=== PATIENT | female | born 1945 | race Caucasian/White ===

== ENCOUNTER → 2019-08-27 09:41 | Outpatient (BNVA) | payer MEDICARE, OTHER, SELFPAY | PROVIDERS: Family Provider Family Medicine; PCP Internal Medicine; Referring Provider Internal Medicine; Visit Provider Orthopaedic Surgery | DX: M77.8 Other enthesopathies, not elsewhere classified (principal); M25.562 Pain in left knee; M25.561 Pain in right knee | CPT/HCPCS: 73560; 73565 ==

== ENCOUNTER → 2019-09-02 12:06 | Outpatient (BNVA) | payer MEDICARE, OTHER, SELFPAY | PROVIDERS: Family Provider Family Medicine; PCP Internal Medicine; Visit Provider Urology | DX: N39.0 Urinary tract infection, site not specified (principal); N39.46 Mixed incontinence | CPT/HCPCS: 81001; 87086 ==

== ENCOUNTER → 2020-03-04 10:00 | Outpatient (BNVA) | payer MEDICARE, OTHER, MEDICAID, SELFPAY | PROVIDERS: Family Provider Family Medicine; PCP Internal Medicine; Visit Provider Nurse Practitioner Family | DX: N39.0 Urinary tract infection, site not specified (principal); N39.46 Mixed incontinence | CPT/HCPCS: 81001 ==

== ENCOUNTER 2020-04-15 10:36 | Inpatient (IN) | payer MEDICARE, OTHER, MEDICAID, SELFPAY ==
[2020-04-15] VITALS (12 sets, daily range): BP systolic 116–155; BP diastolic 59–78; PULSE 66–88; RESP 16–29; TEMP 36.8–37.4; O2SAT 89–97; BMI 36.5
--- NOTE | 2020-04-15 10:46 | XRR_ITS ---
PROCEDURE INFORMATION: Exam: XR Chest, 1 View Exam date and time: 04/15/2020 10:53 AM Age: 74 years old Clinical indication: Dyspnea TECHNIQUE: Imaging protocol: XR of the chest Views: 1 view. COMPARISON: CR Chest 1 [place] [id number] 03/01/2019 2:46 PM FINDINGS: Lungs: Subtle patchy airspace disease in the perihilar regions and lung bases. Left greater than right. Mildly progressive. Pleural space: Unremarkable. No pleural effusion. No pneumothorax. Heart/Mediastinum: Unremarkable. No cardiomegaly. Bones/joints: Unremarkable. XR/XR chest 1V portable [id number] IMPRESSION: Subtle patchy airspace disease in the perihilar regions and lung bases. Left greater than right. Mildly progressive.
--- NOTE | 2020-04-15 10:46 | ECG_ITS ---
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 Measurements Intervals Pool Rate: 76 P: 72 WV: 158 QRS: -28 QRSD: 93 T: 0 QT: 419 QTc: 472 Interpretive Statements SINUS RHYTHM BORDERLINE LEFT AXIS DEVIATION [QRS AXIS < -20] MODERATE VOLTAGE CRITERIA FOR LVH, CONSIDER NORMAL VARIANT [MEETS CRITERIA IN ONE OF: R(aVL), S(V1), R(V5), R(V5/V6)+S(V1)] NONSPECIFIC T-WAVE ABNORMALITY Compared to ECG 03/01/2019 15:12:48 T-wave abnormality now present Sinus arrhythmia no longer present Electronically Signed On 04-16-2020 20:25:42 CDT by Vlad Barcenas M.D. [id number]
[2020-04-15 10:57] LABS: ABG PCO2 33.8 mmHg (35-45); Arterial Blood Gas Hematocrit 37.8 % (37-47); Base Excess ABG -3.2 mmol/L (-2.0-2.0); Blood Gas Allen Test Pos; Blood Gas Operator Identificat CAK; Blood Gas Sample Site Radial, left; Blood Gas Sample Type Arterial; HCO3 ABG 20.9 mmol/L (22-26); Oxygen Device NC; PO2 ABG 57.6 mmHg (80.0-100.0)
[2020-04-15] MEDS: dexamethasone 4 mg/mL INJ 6 MG IVP (11:00)
--- NOTE | 2020-04-15 11:33 | W.ED.SOB ---
HPI - SOB/Dyspnea General: Chief Complaint: Shortness of Breath/Dyspnea Stated Complaint: COVID, RESP DISTRESS Time Seen by Provider: 04/15/20 10:44 History of Present Illness: HPI Narrative: 74-year-old [facility] she was diagnosed with Covid for the [facility] staff. According to her chart she was tested positive on 04/08 but I do not see what type of test she had. She is extremely short of breath she has had nausea vomiting and diarrhea. She denies any chest pain. She is requiring high flow oxygen in the exam room to maintain her sats near 90. She has a history of congestive heart failure and diabetes mellitus. We did verify through the jail she had a PCR test to establish her Covid diagnosis. MD elicited complaint: shortness of breath and cough Pertinent past history: congestive heart failure Onset (ago): day(s) Context: recent illness (Diagnosis COVID-19 through the jail.) Timing: constant Severity: severe Exacerbating factors: exertion and coughing Relieving factors: oxygen and rest Known history of: congestive heart failure Associated symptoms: Reports chest congestion, cough, fever(s), lightheadedness, myalgias and nausea; Deny abdominal pain, chest pain, diaphoresis, dizziness, extremity pain, hemoptysis, orthopnea, palpitations, paresthesias, polydipsia, polyuria, rash, sense of impending doom, syncope or vomiting Treatment prior to arrival: oxygen Review of Systems Const: Reports: fever(s); Denies: diaphoresis ENMT: Reports: nasal discharge and nasal congestion; Denies: throat pain or ear or mastoid pain Card: Reports: lightheadedness; Denies: chest pain, palpitations, syncope or orthopnea Resp: Reports: dyspnea, productive cough (Clear nonpurulent mucus) and chest congestion; Denies: hemoptysis GI: Reports: nausea; Denies: abdominal pain or vomiting : Denies: flank pain, difficulty voiding, dysuria, urinary frequency or urinary urgency Musc: Denies: extremity pain Skin/Breast: Denies: rash or pruritus Neuro: Denies: dizziness Endo: Denies: polyuria or polydipsia PFSH ED PFSH: Medical History CHF (congestive heart failure) Depression Diabetes mellitus with insulin therapy Diabetic neuropathy DJD (degenerative joint disease) GERD (gastroesophageal reflux disease) Hyperlipidemia Hypertension, accelerated Hypertensive CHF Obesity Obstructive sleep apnea Uses CPAP 12 cm water pressure Recurrent UTI Urinary incontinence, mixed Surgical History H/O knee surgery H/O: hysterectomy History of cholecystectomy Family History Father , at age 51 Chronic kidney disease (CKD) Diabetes Mother , at age 81 No problems noted. Other Cancer Kidney disease Stroke Social History Smoking and tobacco status: never smoked Alcohol intake: never Adopted: No Caregiver/support person: No Lives independently: No Housing: Penitentiary Marital status: / Current occupational status: disabled History of recent travel: No Current gender identity: Female Physical Exam Const: COMMON NORMALS: no acute distress GENERAL APPEARANCE: cooperative and comfortable ORIENTATION/CONSCIOUSNESS: Yes awake, Yes oriented to person, Yes oriented to place and Yes oriented to time HENMT: COMMON NORMALS: normocephalic, atraumatic and hearing grossly normal bilaterally HEAD & SCALP: normocephalic and atraumatic Neck/C-Spine: COMMON NORMALS: no JVD Resp: AUSCULTATION: rhonchi and wheezes Cardio: COMMON NORMALS: no JVD, regular rate, regular rhythm and No murmurs present (Cardio) RATE: regular rate RHYTHM: regular rhythm GI: COMMON NORMALS: Soft to palpation and No hepatosplenomegaly present AUSCULTATION: Yes normoactive bowel sounds PALPATION: Yes Soft to palpation, No Tenderness to palpation present (GI), No Guarding due to palpation present (GI) and Yes No hepatosplenomegaly present Extremity: COMMON NORMALS: normal to inspection, capillary refill normal, no clubbing, cyanosis or edema, no calf tenderness and no pedal edema Neuro: SENSORIUM/ORIENTATION: Yes oriented to person, Yes oriented to place and Yes oriented to time Skin: COMMON NORMALS: no rashes or lesions noted GENERAL SKIN EXAM: no rashes or lesions noted Course Vital Signs: Vital signs: Vital Signs Temperature 98.4 F 04/16/20 04:00 Pulse Rate 67 04/16/20 06:02 Respiratory Rate 24 H 10/14/20 19:05 Blood Pressure 155/77 04/15/20 19:05 Pulse Oximetry 95 04/16/20 06:02 MDM - SOB/Dyspnea MDM Narrative: Medical decision making narrative: Patient has Covid pneumonitis on chest x-ray. Given her physical exam findings and hypoxia and need for high flow oxygen will admit her to the VICU discussed with Dr. Mathur he will be attending he seen the patient in the emergency room orders have been written. Lab Data: Labs: Lab Results 04/15/20 04/15/20 04/15/20 Range/Units 10:46 11:20 12:55 WBC 9.0 (4.0-10.0) 10^3/ uL RBC 4.30 (4.1-5.3) 10^6/u L Hgb 11.4 L (11.5-15.3) g/dL Hct 36.3 L (37.0-47.0) % MCV 84.4 (81-99) fL MCH 26.5 L (28.0-34.0) pg MCHC 31.4 (30.0-36.0) g/dL RDW 14.5 (12.1-15.1) % Plt Count 217 (130-400) 10^3/c mm MPV 11.1 H (7.4-10.4) fL Neut % (Auto) 85.4 % Lymph % (Auto) 8.9 % Cocke % (Auto) 3.5 % Eos % (Auto) 0.0 % Baso % (Auto) 0.3 % Neut # (Auto) 7.70 (1.8-7.7) 10^3/u L Lymph # (Auto) 0.8 (0.8-4.8) 10^3/u L Cocke # (Auto) 0.3 (0.2-0.9) 10^3/u L Eos # (Auto) 0.0 (0.0-0.8) 10^3/u L Baso # (Auto) 0.0 (0.0-0.1) 10^3/u L Nucleated RBC % (a uto) 0 % Nucleated RBCs # 0.0 /100WBC Fibrinogen 654 H (174-498) mg/dL D-Dimer 1.20 H (0-0.59) ug/mIFE U Specimen Type Arterial Sample Site Radial, left ABG pH 7.40 (7.35-7.45) ABG pCO2 33.8 L (35-45) mmHg ABG pO2 57.6 L (80.0-100.0) mmH g ABG HCO3 20.9 L (22-26) mmol/L ABG Base Excess -3.2 L (-2.0-2.0) mmol/ L Vinay Test Pos Hematocrit 37.8 (37-47) % O2 Delivery Device Nc O2 Liters/Min 8.0 % Slicing Machine Operator ID Cak Sodium (136-145) mmol/L Potassium (3.5-5.1) mmol/L Chloride (98-107) mmol/L Carbon Dioxide (22-29) mmol/L Anion Gap (5-19) BUN (8-23) mg/dL Creatinine (0.5-0.9) mg/dL GFR Calculation Glucose (65-115) mg/dL Calculated Osmolal ity (285-295) mOsm/k g Lactic Acid (0.5-2.2) mmol/L Calcium (8.5-10.5) mg/dL Ferritin (15-150) ng/mL Total Bilirubin (0.15-1.2) mg/dL AST (0-32) U/L ALT (0-33) U/L Alkaline Phosphata se (35-105) IU/L Lactate Dehydrogen ase (135-214) U/L C-Reactive Protein (0.0-4.9) mg/L Total Protein (6.6-8.7) g/dL Albumin (3.5-5.2) g/dL Globulin (1.3-4.6) g/dL Procalcitonin (0-0.5) ng/mL TSH (0.27-4.20) uIU/ mL 04/15/20 04/15/20 04/15/20 Range/Units 12:55 12:55 12:55 WBC (4.0-10.0) 10^3/ uL RBC (4.1-5.3) 10^6/u L Hgb (11.5-15.3) g/dL Hct (37.0-47.0) % MCV (81-99) fL MCH (28.0-34.0) pg MCHC (30.0-36.0) g/dL RDW (12.1-15.1) % Plt Count (130-400) 10^3/c mm MPV (7.4-10.4) fL Neut % (Auto) % Lymph % (Auto) % Cocke % (Auto) % Eos % (Auto) % Baso % (Auto) % Neut # (Auto) (1.8-7.7) 10^3/u L Lymph # (Auto) (0.8-4.8) 10^3/u L Cocke # (Auto) (0.2-0.9) 10^3/u L Eos # (Auto) (0.0-0.8) 10^3/u L Baso # (Auto) (0.0-0.1) 10^3/u L Nucleated RBC % (a uto) % Nucleated RBCs # /100WBC Fibrinogen (174-498) mg/dL D-Dimer (0-0.59) ug/mIFE U Specimen Type Sample Site ABG pH (7.35-7.45) ABG pCO2 (35-45) mmHg ABG pO2 (80.0-100.0) mmH g ABG HCO3 (22-26) mmol/L ABG Base Excess (-2.0-2.0) mmol/ L Vinay Test Hematocrit (37-47) % O2 Delivery Device O2 Liters/Min % Slicing Machine Operator ID Sodium 140 (136-145) mmol/L Potassium 3.3 L (3.5-5.1) mmol/L Chloride 103 (98-107) mmol/L Carbon Dioxide 20 L (22-29) mmol/L Anion Gap 20.3 H (5-19) BUN 42 H (8-23) mg/dL Creatinine 2.1 H (0.5-0.9) mg/dL GFR Calculation Not Reportable Glucose 252 H (65-115) mg/dL Calculated Osmolal ity 309 H (285-295) mOsm/k g Lactic Acid 1.2 (0.5-2.2) mmol/L Calcium 8.3 L (8.5-10.5) mg/dL Ferritin 464 H (15-150) ng/mL Total Bilirubin 0.3 (0.15-1.2) mg/dL AST 31 (0-32) U/L ALT 23 (0-33) U/L Alkaline Phosphata se 80 (35-105) IU/L Lactate Dehydrogen ase 418 H (135-214) U/L C-Reactive Protein 137.5 H (0.0-4.9) mg/L Total Protein 6.8 (6.6-8.7) g/dL Albumin 3.6 (3.5-5.2) g/dL Globulin 3.2 (1.3-4.6) g/dL Procalcitonin 0.40 (0-0.5) ng/mL TSH 0.72 (0.27-4.20) uIU/ mL Discharge Plan Discharge Patient Disposition: Admitted As Inpatient Admit Provider: Oswaldo Ribera Clinical Impression: Pneumonia due to COVID-19 virus, Acute respiratory failure, CHF (congestive heart failure), Anemia, Hypertension, accelerated Condition: Stable Interventions: ED Discharge Assessment Last Done: 04/15/20 19:05 ED Charges Last Done: 04/15/20 19:05 Discharge Date/Time: 04/15/20 20:19 Coding Level of Care Code 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
[2020-04-15 11:57] LABS: Fibrinogen 654 mg/dL (174-498)
[2020-04-15 13:02] LABS: Basophils % 0.3 %; Hematocrit 36.3 % (37.0-47.0); Hemoglobin 11.4 g/dL (11.5-15.3); Lymphocytes # 0.8 10^3/uL (0.8-4.8); Lymphocytes % 8.9 %; Mean Corpuscular HGB Conc 31.4 g/dL (30.0-36.0); Mean Corpuscular Hemoglobin 26.5 pg (28.0-34.0); Mean Corpuscular Volume 84.4 fL (81-99); Mean Platelet Volume 11.1 fL (7.4-10.4); Monocytes # 0.3 10^3/uL (0.2-0.9); Monocytes % 3.5 %; Neutrophils % 85.4 %; Nucleated Red Blood Cells % 0 %; Platelet Count 217 10^3/cmm (130-400); Red Cell Distribution Width 14.5 % (12.1-15.1)
[2020-04-15 13:26] LABS: Lactic Sepsis W/Reflex 1.2 mmol/L (0.5-2.2)
[2020-04-15 13:51] LABS: Alanine Aminotransferase 23 U/L (0-33); Albumin Level 3.6 g/dL (3.5-5.2); Alkaline Phosphatase 80 IU/L (35-105); Anion Gap 20.3 (5-19); Aspartate Amino Transferase 31 U/L (0-32); Blood Urea Nitrogen 42 mg/dL (8-23); C Reactive Protein 137.5 mg/L (0.0-4.9); Calcium 8.3 mg/dL (8.5-10.5); Carbon Dioxide 20 mmol/L (22-29); Chloride 103 mmol/L (98-107); Ferritin 464 ng/mL (15-150); Globulin 3.2 g/dL (1.3-4.6); Glucose 252 mg/dL (65-115); Lactate Dehydrogenase 418 U/L (135-214); Osmolality Calculated 309 mOsm/kg (285-295); Potassium 3.3 mmol/L (3.5-5.1); Sodium 140 mmol/L (136-145); Total Bilirubin 0.3 mg/dL (0.15-1.2); Total Protein 6.8 g/dL (6.6-8.7)
--- NOTE | 2020-04-15 14:45 | P.HP_ITS ---
Providers/Chief Complaint Primary Care Provider: Claudio Parnell DO Chief Complaint: COVID, RESP DISTRESS History of Present Illness Roxann Kumar is a 74 year old female who presents with history of COVID. She was tested on April 08 and had a positive test. She has been significantly short of breath the last several days. She has been coughing, and congested. She has had some nausea, and diarrhea. No vomiting currently. Overall poor intake lately. Intermittent fevers. No chest pain, hemoptysis, calf pain. No blood in stool, black or tarry stools. No history of bleeding. Review of Systems General: Reports: 10 or more systems reviewed and unremarkable except in HPI and below Const: Reports: fever(s) and body aches Eyes: Denies: change in vision ENMT: Denies: throat pain Card: Denies: chest pain Resp: Reports: dyspnea and productive cough GI: Reports: nausea and diarrhea; Denies: abdominal pain : Denies: flank pain Musc: Denies: neck pain Skin/Breast: Denies: rash Neuro: Denies: headache(s) Psych: Denies: anxiety Endo: Denies: polyuria Wai/Lymph: Denies: easy bruising All/Imm: Denies: urticaria Medications/Allergies Home Medications Medication Instructions Recorded Confirmed Last Taken Type alendronate 70 mg tablet 70 mg PO .once weekly tab 08/12/19 03/04/20 Unknown History atorvastatin 40 mg tablet 40 mg PO DAILY 08/12/19 03/04/20 Unknown History fluticasone propionate 50 2 spray INTRANASAL DAILY 08/12/19 03/04/20 Unknown History mcg/actuation nasal spray,suspension gabapentin 300 mg capsule 300 mg PO TID 08/12/19 03/04/20 Unknown History insulin detemir U-100 100 unit/mL 30 unit SUBCUT .AT BEDTIME ml 08/12/19 03/04/20 Unknown History (3 mL) subcutaneous pen insulin lispro 100 unit/mL 1 unit SUBCUT TID ml 08/12/19 03/04/20 Unknown History subcutaneous pen meclizine 25 mg tablet 25 mg PO BID 08/12/19 03/04/20 Unknown History omeprazole 40 mg capsule,delayed 40 mg PO DAILY 08/12/19 03/04/20 Unknown History release sertraline 100 mg tablet 100 mg PO BID tab 08/12/19 03/04/20 Unknown History tramadol 50 mg tablet 50 - 100 mg PO BID PRN tab 08/12/19 03/04/20 Unknown History acetaminophen 325 mg capsule 325 mg PO QID PRN 09/02/19 03/03/20 Unknown History ascorbic acid (vitamin C) 1,000 mg 500 mg PO BID 09/02/19 03/04/20 Unknown History tablet bisacodyl 10 mg rectal suppository 10 mg WV DAILY PRN 09/02/19 03/04/20 Unknown History bisacodyl 5 mg tablet,delayed 5 mg PO DAILY 09/02/19 03/04/20 Unknown History release ibuprofen 800 mg tablet 800 mg PO Q8H 09/02/19 03/03/20 Unknown History methenamine hippurate 1 gram tablet 1 gm PO BID 09/02/19 03/04/20 Unknown History nitroglycerin 0.4 mg sublingual 0.4 mg SUBLINGUAL Q5M PRN 09/02/19 03/04/20 Unknown History tablet polyethylene glycol 3350 17 17 gm PO DAILY 09/02/19 03/04/20 Unknown History gram/dose oral powder amlodipine 10 mg tablet 10 mg PO DAILY 90 Days #90 tab 09/12/19 03/04/20 Unknown Rx furosemide 20 mg tablet 20 mg PO DAILY 90 Days #90 tab 09/12/19 03/04/20 Unknown Rx aspirin 81 mg tablet,delayed 81 mg PO BID tab 03/03/20 03/04/20 Unknown History release cholecalciferol (vitamin D3) 25 25 mcg PO DAILY 03/03/20 03/04/20 Unknown History mcg (1,000 unit) capsule trazodone 100 mg tablet 150 mg PO DAILY tab 03/03/20 03/04/20 Unknown History Allergies Allergy/AdvReac Type Severity Reaction Status Date / Time metronidazole [From Flagyl] AdvReac Mild itching Verified 04/15/20 10:45 nitrofurantoin AdvReac Mild felt sick Verified 04/15/20 10:45 [From Macrobid] PFSH Acute PFSH: Medical History (Updated 04/15/20 @ 14:59 by Oswaldo Ribera MD) CHF (congestive heart failure) Depression Diabetes mellitus with insulin therapy Diabetic neuropathy DJD (degenerative joint disease) GERD (gastroesophageal reflux disease) Hyperlipidemia Hypertension, accelerated Hypertensive CHF Obesity Obstructive sleep apnea Uses CPAP 12 cm water pressure Recurrent UTI Urinary incontinence, mixed Surgical History H/O knee surgery H/O: hysterectomy History of cholecystectomy Family History Father , at age 51 Chronic kidney disease (CKD) Diabetes Mother , at age 81 No problems noted. Other Cancer Kidney disease Stroke Social History Smoking and tobacco status: never smoked Alcohol intake: never Adopted: No Caregiver/support person: No Lives independently: No Housing: Intermediate Marital status: / Current occupational status: disabled History of recent travel: No Current gender identity: Female Vitals/I&O/Wt Last Vital Signs Temp 99.4 F 04/15/20 10:40 Pulse 71 04/15/20 13:00 Resp 24 H 04/15/20 13:00 BP 131/66 04/15/20 13:00 Pulse Ox 91 04/15/20 13:00 Weight last 48 hrs Weight 108.862 kg Physical Exam Narrative: EXAM NARRATIVE: General exam is a conversant white female, with mild to moderate tachypnea. HEENT: Pupils equally round. Oropharynx clear. Neck is supple no lymphadenopathy or thyromegaly Cardiovascular regular rate and rhythm without murmur, no S3 or S4 Lungs few dry crackles bilaterally. No wheezes. Fair aeration. Abdomen is soft nontender with positive bowel sounds. Obese. No obvious organomegaly was deferred Extremities no cyanosis clubbing or edema, cap refill brisk Skin no rash Neuro no focal deficits Data : 04/15/20 12:55 04/15/20 12:55 Micro: Microbiology 04/15/20 12:55 Blood Culture - Preliminary Blood SPECIMEN COLLECTED 04/15/20 11:20 Blood Culture - Preliminary Blood SPECIMEN COLLECTED Other data: Dimer 1.2. ABG 7.4, 34, 58 Ferritin 418 CRP 137 Procalcitonin 0.4 Urinalysis ordered Chest x-ray with patchy airspace disease bilaterally EKG sinus rhythm, left axis deviation, nonspecific ST-T wave flattening inferior leads and lateral leads A&P Assessment and plan (1) Pneumonia due to COVID-19 virus: Initiate dexamethasone Start remdesivir Albuterol as needed Continue to monitor inflammatory markers Oxygen, titrated to need Concern of possibility of pulmonary embolism from the emergency department. CTA will be obtained, after renal function improved. Consider CTA tomorrow. Full dose anticoagulation until that time. At this point it is unlikely she needs antibiotics. We will continue to monitor for need. Note that procalcitonin level is negative. Status: Acute (2) Acute respiratory failure: See above Status: Acute (3) Anemia: Mild, monitor. No history of active bleeding Status: Acute (4) Acute kidney injury: Saline at 75 cc an hour overnight Check urinalysis Avoid anti-inflammatories which she has apparently been taking at home Hold Lasix currently Status: Acute Additional A&P Information History of CHF. Compensated currently history of obstructive sleep apnea. BiPAP while sleeping Diabetes. Continue Lantus, moderate sliding scale insulin Hypertension, continue Norvasc Neuropathy, continue Neurontin GERD, continue proton pump inhibitor History of depression. Reduce dose of SSRI slightly Full code Lovenox will suffice for DVT prophylaxis Attestations Medical Necessity Statement*: Will need greater than 2 midnight stay for treatment of Covid 19 pneumonia Coding Level of Care Code Acute Service Loss Control Consultant for [facility] Diagnoses Pneumonia due to COVID-19 virus U07.1; J12.89 Acute respiratory failure J96.00 Anemia D64.9 Acute kidney injury N17.9
[2020-04-15 15:25] LABS: Thyroid Stimulating Hormone 0.72 uIU/mL (0.27-4.20)
--- NOTE | 2020-04-15 15:37 | PC.NURSE ---
Patient rounding Cleaned patient from bowel movement and turned patient to prone position due to beginnings of pressure ulcers
[2020-04-15 20:51] LABS: Glucose Point of Care 331 mg/dL (70-110)
[2020-04-15 21:16] LABS: Add Urine Microscopic? NO
[2020-04-15 21:23] LABS: Bilirubin Urine Neg (Negative); Blood Urine Neg (Negative); Glucose Urine UA Norm (Normal); Ketones Urine Negative (Negative); Leukocyte Esterase Urine Negative (Negative); Nitrate Urine Negative (Negative); Protein Urine Neg (Negative); Urine Appearance Clear (CLEAR); Urine Color Yellow (Yellow); Urobilinogen Urine Norm (Negative); pH Urine 5 (5-7)
[2020-04-15] MEDS: aspirin 81 mg EC Tablet PO (22:25)
[2020-04-15] MEDS: gabapentin 300 mg Capsule PO (22:25)
[2020-04-15] MEDS: enoxaparin 120 mg/0.8 mL Syringe 110 MG SUBCUT (22:26)
[2020-04-15 23:25] LABS: Glucose Point of Care 291 mg/dL (70-110)
[2020-04-15] MEDS: insulin glargine 100 units/1 mL 30 UNIT SUBCUT (23:33)
[2020-04-16] VITALS (17 sets, daily range): BP systolic 154; BP diastolic 74; PULSE 50–87; RESP 16–35; TEMP 36.1–39.4; O2SAT 90–96
[2020-04-16 07:06] LABS: Basophils % 0.3 %; Hematocrit 41.1 % (37.0-47.0); Hemoglobin 12.7 g/dL (11.5-15.3); Lymphocytes # 1.6 10^3/uL (0.8-4.8); Lymphocytes % 16.9 %; Mean Corpuscular HGB Conc 30.9 g/dL (30.0-36.0); Mean Corpuscular Hemoglobin 26.6 pg (28.0-34.0); Mean Platelet Volume 12.1 fL (7.4-10.4); Monocytes # 0.5 10^3/uL (0.2-0.9); Monocytes % 5.6 %; Neutrophils # 7.16 10^3/uL (1.8-7.7); Neutrophils % 74.9 %; Nucleated Red Blood Cells % 0 %; Platelet Count 254 10^3/cmm (130-400); Red Blood Count 4.78 10^6/uL (4.1-5.3); Red Cell Distribution Width 14.3 % (12.1-15.1); White Blood Count 9.6 10^3/uL (4.0-10.0)
[2020-04-16 07:16] LABS: D Dimer 0.92 ug/mIFEU (0-0.59)
--- NOTE | 2020-04-16 07:19 | PC.NURSE ---
Shift Events: Patient arrived to unit from ED via Stretcher. SpO2 was 88% on 15L high flow. Switched to BiPap with 45% FiO2 and sats improved. Oriented x 4. Dennison in place with clear, yellow urine. Remained free of falls and injury during this shift.
[2020-04-16 08:26] LABS: Glucose Point of Care 195 mg/dL (70-110)
[2020-04-16] MEDS: enoxaparin 120 mg/0.8 mL Syringe 110 MG SUBCUT (09:17)
[2020-04-16] MEDS: amlodipine 10 mg Tablet PO (09:20)
[2020-04-16] MEDS: aspirin 81 mg EC Tablet PO ×2 (09:20→17:16)
[2020-04-16] MEDS: gabapentin 300 mg Capsule PO ×3 (09:21→20:05)
[2020-04-16] MEDS: atorvastatin 40 mg Tablet PO (09:21)
[2020-04-16] MEDS: sertraline 100 mg Tablet PO (09:22)
[2020-04-16] MEDS: pantoprazole DR 40 mg Tablet PO (09:22)
[2020-04-16 09:36] LABS: C Reactive Protein 123.3 mg/L (0.0-4.9); Magnesium 1.6 mg/dL (1.7-2.3)
[2020-04-16] MEDS: sodium chloride 0.9% 1,000 ML 75 ML IV ×2 (10:56)
[2020-04-16] MEDS: acetaminophen 325 mg Tablet 650 MG PO ×2 (11:01→21:29)
[2020-04-16 11:28] LABS: Glucose Point of Care 245 mg/dL (70-110)
--- NOTE | 2020-04-16 11:46 | PM.PN ---
Subjective Subjective: Interval history: Roxann has just gone on BiPAP. She has spiked a fever. She does not feel like eating. Feels like shortness of breath is less on BiPAP. Medications: Reviewed: Yes Vitals/I&O/Wt Last Vital Signs Temp 102.9 F H 04/16/20 11:43 Pulse 78 04/16/20 11:36 Resp 24 H 04/16/20 11:22 BP 155/77 04/15/20 19:05 Pulse Ox 90 04/16/20 11:36 04/15/20 04/16/20 04/16/20 22:59 06:59 14:59 Intake Total 450 / 450 1180 / 1180 Output Total 275 / 275 Balance 450 / 450 -275 / 175 1180 / 1180 Weight last 48 hrs Weight 108.862 kg Physical Exam Narrative: EXAM NARRATIVE: General exam on BiPAP. Appears short of breath Cardiovascular regular rate and rhythm without murmur, no S3 or S4 Lungs coarse bilateral Abdomen is soft nontender with positive bowel sounds. Obese. No obvious organomegaly Extremities no cyanosis clubbing or edema, cap refill brisk Urinary Catheter Management^: Dennison: Cath Placed During This Visit: yes Reason for Continuing Indwelling Catheter: Accurate Measurement of Urinary Output in Critically Ill Patients Urinary Catheter Date of Insertion: 04/15/20 Urinary Catheter Time of Insertion: 18:30 Data : 04/16/20 06:30 04/15/20 12:55 Micro: Microbiology 04/15/20 12:55 Blood Culture - Preliminary Blood SPECIMEN COLLECTED 04/15/20 11:20 Blood Culture - Preliminary Blood SPECIMEN COLLECTED A&P Assessment and plan (1) Pneumonia due to COVID-19 virus: Continue dexamethasone Continue remdesivir Albuterol as needed Continue to monitor inflammatory markers Oxygen, titrated to need. Currently on BiPAP Full dose anticoagulation. Possible CTA if renal function improves Initiate vancomycin and Zosyn. Significant worsening respiratory status, and fever noted. Note that procalcitonin level is negative. Discontinue IV fluids secondary to worsening respiratory status Status: Acute (2) Acute respiratory failure: See above Status: Acute (3) Anemia: Mild, monitor. No history of active bleeding. Stable Status: Acute (4) Acute kidney injury: Discontinue IV fluids Urinalysis was checked and no evidence of infection Avoid anti-inflammatories which she has apparently been taking at home Holding Lasix Status: Acute Additional A&P Information History of CHF. Compensated currently. Holding Lasix. Holding IV fluids. history of obstructive sleep apnea. BiPAP while sleeping Diabetes. Continue Lantus, moderate sliding scale insulin Hypertension, continue Norvasc Neuropathy, continue Neurontin GERD, continue proton pump inhibitor History of depression. 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
[2020-04-16 11:50] LABS: Alanine Aminotransferase 22 U/L (0-33); Albumin Level 3.5 g/dL (3.5-5.2); Alkaline Phosphatase 75 IU/L (35-105); Anion Gap 23.3 (5-19); Aspartate Amino Transferase 35 U/L (0-32); Blood Urea Nitrogen 61 mg/dL (8-23); Calcium 8.2 mg/dL (8.5-10.5); Carbon Dioxide 16 mmol/L (22-29); Chloride 106 mmol/L (98-107); Globulin 3.1 g/dL (1.3-4.6); Glucose 165 mg/dL (65-115); Osmolality Calculated 315 mOsm/kg (285-295); Potassium 3.3 mmol/L (3.5-5.1); Sodium 142 mmol/L (136-145); Total Bilirubin 0.3 mg/dL (0.15-1.2); Total Protein 6.6 g/dL (6.6-8.7)
[2020-04-16 11:51] LABS: Ferritin 648 ng/mL (15-150)
[2020-04-16] MEDS: potassium chloride ER 10 mEq Tablet 40 MEQ PO (13:00)
[2020-04-16] MEDS: piperacillin-tazobactam 3.375 GM in sodium chloride 0.9% (plus) 50 ML IV ×2 (13:00→20:05)
[2020-04-16] MEDS: magnesium sulfate premix 2 GM/50 ML PIGGYBACK IV (13:44)
[2020-04-16 16:08] LABS: Glucose Point of Care 63 mg/dL (70-110)
[2020-04-16 16:46] LABS: Glucose Point of Care 113 mg/dL (70-110)
[2020-04-16] MEDS: sodium bicarbonate 650 mg Tablet PO (17:16)
[2020-04-16] MEDS: enoxaparin 100 mg/mL Syringe SUBCUT (20:05)
[2020-04-16 20:49] LABS: Glucose Point of Care 221 mg/dL (70-110)
[2020-04-16] MEDS: insulin glargine 100 units/1 mL 30 UNIT SUBCUT (21:07)
[2020-04-16] MEDS: dexamethasone 4 mg/mL INJ 6 MG IVP (21:45)
[2020-04-17] VITALS (9 sets, daily range): BP systolic 139–170; BP diastolic 78–86; PULSE 61–77; RESP 22–29; TEMP 36.9–37.8; O2SAT 90–95
[2020-04-17] MEDS: piperacillin-tazobactam 3.375 GM in sodium chloride 0.9% (plus) 50 ML IV ×3 (05:13→21:21)
[2020-04-17 05:28] LABS: Basophils % 0.3 %; Hemoglobin 11.1 g/dL (11.5-15.3); Lymphocytes # 1.1 10^3/uL (0.8-4.8); Lymphocytes % 13.5 %; Mean Corpuscular HGB Conc 31.7 g/dL (30.0-36.0); Mean Corpuscular Hemoglobin 26.2 pg (28.0-34.0); Mean Corpuscular Volume 82.7 fL (81-99); Mean Platelet Volume 11.9 fL (7.4-10.4); Monocytes # 0.3 10^3/uL (0.2-0.9); Monocytes % 3.2 %; Neutrophils % 81.2 %; Nucleated Red Blood Cells % 0 %; Platelet Count 264 10^3/cmm (130-400); Red Blood Count 4.23 10^6/uL (4.1-5.3); Red Cell Distribution Width 14.6 % (12.1-15.1); White Blood Count 7.9 10^3/uL (4.0-10.0)
[2020-04-17 05:46] LABS: Alanine Aminotransferase 22 U/L (0-33); Albumin Level 3.5 g/dL (3.5-5.2); Alkaline Phosphatase 73 IU/L (35-105); Anion Gap 17.4 (5-19); Aspartate Amino Transferase 43 U/L (0-32); Blood Urea Nitrogen 67 mg/dL (8-23); Calcium 8.5 mg/dL (8.5-10.5); Carbon Dioxide 20 mmol/L (22-29); Chloride 107 mmol/L (98-107); Globulin 3.3 g/dL (1.3-4.6); Glucose 176 mg/dL (65-115); Osmolality Calculated 316 mOsm/kg (285-295); Potassium 3.4 mmol/L (3.5-5.1); Sodium 141 mmol/L (136-145); Total Bilirubin 0.3 mg/dL (0.15-1.2); Total Protein 6.8 g/dL (6.6-8.7)
[2020-04-17 06:49] LABS: Slide Review Slide Review Perform
[2020-04-17 07:56] LABS: Glucose Point of Care 220 mg/dL (70-110)
[2020-04-17] MEDS: enoxaparin 100 mg/mL Syringe SUBCUT ×2 (09:08→21:20)
[2020-04-17] MEDS: sertraline 100 mg Tablet PO (09:09)
[2020-04-17] MEDS: aspirin 81 mg EC Tablet PO ×2 (09:09→17:09)
[2020-04-17] MEDS: amlodipine 10 mg Tablet PO (09:09)
[2020-04-17] MEDS: sodium bicarbonate 650 mg Tablet PO ×2 (09:09→17:10)
[2020-04-17] MEDS: gabapentin 300 mg Capsule PO ×3 (09:09→21:21)
[2020-04-17] MEDS: pantoprazole DR 40 mg Tablet PO (09:09)
[2020-04-17] MEDS: atorvastatin 40 mg Tablet PO (09:09)
[2020-04-17 11:38] LABS: Glucose Point of Care 169 mg/dL (70-110)
[2020-04-17 11:38] LABS: Glucose Point of Care 115 mg/dL (70-110)
[2020-04-17 11:38] LABS: Glucose Point of Care 293 mg/dL (70-110)
[2020-04-17 11:38] LABS: Glucose Point of Care 264 mg/dL (70-110)
--- NOTE | 2020-04-17 11:41 | PM.PN ---
Subjective Subjective: Interval history: Roxann reports she still has significant shortness of breath. Nursing relates several coughing episodes, that are severe at times. Medications: Reviewed: Yes Vitals/I&O/Wt Last Vital Signs Temp 98.5 F 04/17/20 04:00 Pulse 77 04/17/20 08:30 Resp 26 H 04/17/20 08:30 BP 170/86 04/17/20 04:00 Pulse Ox 90 04/17/20 08:30 04/16/20 04/17/20 04/17/20 22:59 06:59 14:59 Intake Total / 1989 Output Total 700 / 700 550 / 1250 Balance 110 / 1290 -500 / 790 Physical Exam Narrative: EXAM NARRATIVE: General exam currently on high flow BiPAP. Appears moderately dyspneic Cardiovascular regular rate and rhythm without murmur, no S3 or S4 Lungs coarse bilateral Abdomen is soft nontender with positive bowel sounds. Extremities no cyanosis clubbing or edema Urinary Catheter Management^: Dennison: Cath Placed During This Visit: yes Reason for Continuing Indwelling Catheter: Accurate Measurement of Urinary Output in Critically Ill Patients Urinary Catheter Date of Insertion: 04/15/20 Urinary Catheter Time of Insertion: 18:30 Data : 04/17/20 04:30 04/17/20 04:30 Micro: Microbiology 04/16/20 15:25 MRSA Culture - Final Nose 04/15/20 12:55 Blood Culture - Preliminary Blood NEGATIVE TO DATE 04/15/20 11:20 Blood Culture - Preliminary Blood NEGATIVE TO DATE A&P Assessment and plan (1) Pneumonia due to COVID-19 virus: Continue dexamethasone Continue remdesivir Albuterol as needed She is currently on high flow Continue dose anticoagulation. Possible CTA if renal function improves. It is perhaps slightly better today. On vancomycin and Zosyn. MRSA PCR is negative so we will discontinue vancomycin Fluids discontinued secondary to worsening respiratory status Status: Acute (2) Acute respiratory failure: See above Status: Acute (3) Anemia: Mild, monitor. No history of active bleeding. Continues to remain stable Status: Acute (4) Acute kidney injury: Fluids discontinued April 16 Urinalysis was checked and no evidence of infection Avoid anti-inflammatories which she has apparently been taking at home Holding Lasix Status: Acute Additional A&P Information Mild hypokalemia, supplement history of CHF. Compensated currently. Holding Lasix. Holding IV fluids. history of obstructive sleep apnea. BiPAP while sleeping Diabetes. Continue Lantus, moderate sliding scale insulin. Sugars acceptable currently Hypertension, continue Norvasc Neuropathy, continue Neurontin GERD, continue proton pump inhibitor History of depression. 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
[2020-04-17] MEDS: potassium chloride ER 10 mEq Tablet 40 MEQ PO (11:54)
[2020-04-17 17:05] LABS: Glucose Point of Care 157 mg/dL (70-110)
[2020-04-17 21:05] LABS: Glucose Point of Care 239 mg/dL (70-110)
[2020-04-17] MEDS: insulin glargine 100 units/1 mL 30 UNIT SUBCUT (21:19)
[2020-04-17] MEDS: dexamethasone 4 mg/mL INJ 6 MG IVP (21:19)
[2020-04-18] VITALS (24 sets, daily range): BP systolic 143–194; BP diastolic 63–110; PULSE 57–122; RESP 15–57; TEMP 37.1–38.6; O2SAT 81–98
[2020-04-18] MEDS: acetaminophen 325 mg Tablet 650 MG PO (00:56)
[2020-04-18] MEDS: piperacillin-tazobactam 3.375 GM in sodium chloride 0.9% (plus) 50 ML IV ×3 (03:53→19:38)
[2020-04-18 05:00] LABS: Basophils % 0.2 %; Hematocrit 33.3 % (37.0-47.0); Hemoglobin 10.4 g/dL (11.5-15.3); Lymphocytes % 11.7 %; Mean Corpuscular HGB Conc 31.2 g/dL (30.0-36.0); Mean Corpuscular Hemoglobin 25.9 pg (28.0-34.0); Mean Platelet Volume 11.5 fL (7.4-10.4); Monocytes # 0.3 10^3/uL (0.2-0.9); Monocytes % 3.5 %; Neutrophils # 6.89 10^3/uL (1.8-7.7); Neutrophils % 83.2 %; Nucleated Red Blood Cells % 0 %; Platelet Count 258 10^3/cmm (130-400); Red Blood Count 4.01 10^6/uL (4.1-5.3); Red Cell Distribution Width 14.7 % (12.1-15.1); White Blood Count 8.3 10^3/uL (4.0-10.0)
[2020-04-18 05:29] LABS: Alanine Aminotransferase 20 U/L (0-33); Albumin Level 3.3 g/dL (3.5-5.2); Alkaline Phosphatase 70 IU/L (35-105); Anion Gap 16.7 (5-19); Aspartate Amino Transferase 49 U/L (0-32); Blood Urea Nitrogen 63 mg/dL (8-23); C Reactive Protein 57.4 mg/L (0.0-4.9); Calcium 8.4 mg/dL (8.5-10.5); Carbon Dioxide 19 mmol/L (22-29); Chloride 111 mmol/L (98-107); Globulin 3.1 g/dL (1.3-4.6); Glucose 147 mg/dL (65-115); Osmolality Calculated 317 mOsm/kg (285-295); Potassium 3.7 mmol/L (3.5-5.1); Sodium 143 mmol/L (136-145); Total Bilirubin 0.2 mg/dL (0.15-1.2); Total Protein 6.4 g/dL (6.6-8.7)
[2020-04-18 05:42] LABS: D Dimer 0.49 ug/mIFEU (0-0.59)
[2020-04-18 05:47] LABS: Ferritin 1310 ng/mL (15-150)
--- NOTE | 2020-04-18 06:32 | PC.NURSE ---
Shift Events: Patient rested quietly in bed with BiPap on. Switched from a medium mask to a small mask to prevent air leak. Dennison remains in place with good urine output. Skin remains clean, dry and intact. No c/o pain. VSS.
[2020-04-18 06:48] LABS: Glucose Point of Care 192 mg/dL (70-110)
[2020-04-18] MEDS: enoxaparin 100 mg/mL Syringe SUBCUT ×2 (08:16→19:38)
[2020-04-18] MEDS: aspirin 81 mg EC Tablet PO ×2 (08:17→17:08)
[2020-04-18] MEDS: gabapentin 300 mg Capsule PO ×2 (08:17→15:14)
[2020-04-18] MEDS: pantoprazole DR 40 mg Tablet PO (08:17)
[2020-04-18] MEDS: amlodipine 10 mg Tablet PO (08:17)
[2020-04-18] MEDS: atorvastatin 40 mg Tablet PO (08:17)
[2020-04-18] MEDS: sertraline 100 mg Tablet PO (08:17)
[2020-04-18] MEDS: sodium bicarbonate 650 mg Tablet PO ×2 (08:17→17:08)
--- NOTE | 2020-04-18 10:55 | P.PN_ITS ---
Subjective Subjective: Interval history: Roxann reports she might be a little bit better. She still has BiPAP on. No chest pain. Medications: Reviewed: Yes Vitals/I&O/Wt Last Vital Signs Temp 98.9 F 04/18/20 08:00 Pulse 62 04/18/20 10:00 Resp 20 H 04/18/20 10:00 BP 170/86 04/17/20 04:00 Pulse Ox 94 04/18/20 10:00 04/17/20 04/18/20 04/18/20 22:59 06:59 14:59 Intake Total 930 / 1460 150 / 1610 360 / 360 Output Total 850 / 850 650 / 1500 Balance 80 / 610 -500 / 110 359 / 359 Physical Exam Narrative: EXAM NARRATIVE: General exam still on BiPAP Cardiovascular regular rate and rhythm without murmur, no S3 or S4 Lungs coarse bilateral Abdomen is soft nontender with positive bowel sounds. Extremities no cyanosis clubbing or edema Urinary Catheter Management^: Dennison: Cath Placed During This Visit: yes Reason for Continuing Indwelling Catheter: Accurate Measurement of Urinary Output in Critically Ill Patients Urinary Catheter Date of Insertion: 04/15/20 Urinary Catheter Time of Insertion: 18:30 Data : 04/18/20 04:00 04/18/20 04:00 Micro: Microbiology 04/16/20 15:25 MRSA Culture - Final Nose A&P Assessment and plan (1) Pneumonia due to COVID-19 virus: Continue dexamethasone Continue remdesivir Albuterol as needed She is currently on high flow Reposition as much as possible on side if she cannot prone Continue full dose anticoagulation. Possible CTA if renal function improves. It is perhaps slightly better today. Continue Zosyn. MRSA PCR negative Fluids discontinued secondary to worsening respiratory status's and outs balanced. Renal function improving. CRP, dimer improved but ferritin level increasing Status: Acute (2) Acute respiratory failure: See above Status: Acute (3) Anemia: Mild, monitor. No history of active bleeding. Continues to remain stable Status: Acute (4) Acute kidney injury: Fluids discontinued April 16 Urinalysis was checked and no evidence of infection Avoid anti-inflammatories which she has apparently been taking at home Holding Lasix Renal function is slowly improving. Overall 1500 cc up from admission, which was likely needed secondary to dehydration but we will continue to follow closely. Status: Acute Additional A&P Information Mild hypokalemia, supplement history of CHF. Compensated currently. Holding Lasix. Holding IV fluids. history of obstructive sleep apnea. BiPAP while sleeping Diabetes. Continue Lantus, moderate sliding scale insulin. Sugars still acceptable Hypertension, continue Norvasc Neuropathy, continue Neurontin GERD, continue proton pump inhibitor History of depression. 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
[2020-04-18 11:36] LABS: Glucose Point of Care 196 mg/dL (70-110)
--- NOTE | 2020-04-18 14:21 | DCPLANNER ---
Pg 2 of IM explained to Pt's Daughter via the phone. Alisson Nunes [phone]. No questions.
[2020-04-18 17:08] LABS: Glucose Point of Care 111 mg/dL (70-110)
[2020-04-18 20:07] LABS: Glucose Point of Care 243 mg/dL (70-110)
[2020-04-18] MEDS: LORazepam 2 mg/mL INJ 1 mL 1 MG IVP (21:40)
[2020-04-18] MEDS: propofol 1,000 MG/100 ML INJ 13.1 MG IV (22:20)
--- NOTE | 2020-04-18 22:34 | XRR_ITS ---
PROCEDURE INFORMATION: Exam: XR Chest, 1 View Exam date and time: 04/18/2020 10:35 PM Age: 74 years old Clinical indication: Device placement; Ett placement (vent status); Additional info: Intubation TECHNIQUE: Imaging protocol: XR of the chest Views: 1 view. COMPARISON: CR XR chest 1V portable [id number] 04/15/2020 10:37 AM FINDINGS: Tubes, catheters and devices: Endotracheal tube is well positioned above josafat. Tube coursing via esophagus extends into the abdomen and is not fully imaged. Lungs: See below. Pleural space: No pneumothorax. Heart/Mediastinum: Unremarkable. No cardiomegaly. Bones/joints: No acute findings. Other findings: Mild increase in bilateral pulmonary parenchymal abnormalities. XR/XR chest 1V portable [id number] IMPRESSION: Well-positioned endotracheal tube. Increase in pulmonary parenchymal abnormalities.
--- NOTE | 2020-04-18 22:46 | PM.ACPR ---
Procedure/Consent Time out: Time Out Performed: Yes Consent: Consent for Procedure: Consent obtained from patient Procedure Narrative: Patient was tachypneic was breathing in the 60s on BiPAP 100% FiO2, Ativan did not help relieving her symptoms, decision was made to intubate the patient, patient agreed with intervention Acute Procedures Epistaxis Control: Time out performed: Yes Intubation: Time out performed: Yes Sedative: etomidate Mg given: 20 Paralytic: rocuronium Mg given: 100 Laryngoscope: fiber optic video scope ET tube size: 8 Tube secured depth (cm): 24 Tube secured location: teeth Tube placement confirmation: visualized tube passing through cords and equal breath sounds bilaterally Patient tolerated procedure: well Intubation complications: none Additional comments: Post intubation saturating 95%, PRVC, 100% FiO2, PEEP 10, tidal volume 500, respiratory rate 14 Will obtain blood gas and chest x-ray
[2020-04-18] MEDS: etomidate 10 ML 100 MG (23:21)
[2020-04-18] MEDS: rocuronium 10 mg/mL INJ 5mL 100 MG (23:22)
--- NOTE | 2020-04-18 23:23 | PC.NURSE ---
2100 patient light was still on in room. Entered to check combat control light and patient was very tachypneic Patient running 50-70 BPM on Bipap. Spoke with patient and got her to calm down for a minute. Patient was on bedpan. Assisted to get patient off of the bedpan. Patient became more anxious. Patient asked for Bipap to be removed. Explained to patient that it was helping her to breathe and she needed to continue to take deep breaths to help slow the machine down and the volumes. Contacted respiratory to come and assist with patient as patient was still very labored and tachypneic. Provider contacted and order given for 1 mg ativan IVP with placement back on Bipap to see how patient would respond. Patient not very responsive to treatment. Patient calmer but was still very tachypneic. Provider saw patient on facetime with respiratory and nursing at bedside. Continue with current plan of ativan and monitor for effectiveness. Patient given ativan per order and placed on Bipap. Patient still very tachypneic and BP climbing and elevated. Provider coming to floor for intubation.
[2020-04-18] MEDS: insulin glargine 100 units/1 mL 30 UNIT SUBCUT (23:34)
[2020-04-18 23:51] LABS: ABG PCO2 40.7 mmHg (35-45); ABG PH Result 7.28 (7.35-7.45); Arterial Blood Gas Hematocrit 37.5 % (37-47); Base Excess ABG -7.3 mmol/L (-2.0-2.0); Blood Gas Operator Identificat JB; Blood Gas Sample Site Brachial, right; Blood Gas Sample Type Arterial; Blood Gas Tidal Volume 0.45; Oxygen Device VENT; PO2 ABG 82.7 mmHg (80.0-100.0)
[2020-04-19] VITALS (43 sets, daily range): BP systolic 96–164; BP diastolic 49–77; PULSE 64–108; RESP 21–32; TEMP 36.7–37.9; O2SAT 88–95
[2020-04-19] MEDS: dexamethasone 4 mg/mL INJ 6 MG IVP ×2 (00:19→21:39)
[2020-04-19] MEDS: gabapentin 300 mg Capsule PO ×4 (01:28→20:04)
[2020-04-19] MEDS: propofol 1,000 MG/100 ML INJ 32.7 MG IV ×3 (02:02→07:41)
[2020-04-19] MEDS: piperacillin-tazobactam 3.375 GM in sodium chloride 0.9% (plus) 50 ML IV ×3 (04:22→20:04)
[2020-04-19 05:04] LABS: Basophils % 0.3 %; Eosinophils # 6.7 10^3/uL (0.0-0.8); Eosinophils % 46.8 %; Hematocrit 33.5 % (37.0-47.0); Hemoglobin 10.5 g/dL (11.5-15.3); Lymphocytes # 0.7 10^3/uL (0.8-4.8); Lymphocytes % 4.9 %; Mean Corpuscular HGB Conc 31.3 g/dL (30.0-36.0); Mean Corpuscular Hemoglobin 26.5 pg (28.0-34.0); Mean Corpuscular Volume 84.6 fL (81-99); Monocytes # 0.5 10^3/uL (0.2-0.9); Monocytes % 3.4 %; Neutrophils # 5.23 10^3/uL (1.8-7.7); Neutrophils % 36.7 %; Nucleated Red Blood Cells % 0 %; Platelet Count 307 10^3/cmm (130-400); Red Blood Count 3.96 10^6/uL (4.1-5.3); Red Cell Distribution Width 15.1 % (12.1-15.1); White Blood Count 14.3 10^3/uL (4.0-10.0)
[2020-04-19 05:35] LABS: Lactate (Lactic Acid level) 2.5 mmol/L (0.5-2.2)
[2020-04-19 05:41] LABS: Alanine Aminotransferase 21 U/L (0-33); Albumin Level 2.7 g/dL (3.5-5.2); Alkaline Phosphatase 72 IU/L (35-105); Blood Urea Nitrogen 54 mg/dL (8-23); Calcium 8.7 mg/dL (8.5-10.5); Carbon Dioxide 17 mmol/L (22-29); Chloride 114 mmol/L (98-107); Creatinine Clr Calc Pharmacy 35.4455; Globulin 3.6 g/dL (1.3-4.6); Glucose 192 mg/dL (65-115); Osmolality Calculated 322 mOsm/kg (285-295); Sodium 146 mmol/L (136-145); Total Bilirubin 0.3 mg/dL (0.15-1.2); Total Protein 6.3 g/dL (6.6-8.7)
[2020-04-19 05:58] LABS: ABG PCO2 29.9 mmHg (35-45); ABG PH Result 7.42 (7.35-7.45); Arterial Blood Gas Hematocrit 46.1 % (37-47); Base Excess ABG -3.9 mmol/L (-2.0-2.0); Blood Gas Operator Identificat JB; Blood Gas Sample Site Brachial, right; Blood Gas Sample Type Arterial; Blood Gas Tidal Volume 0.45; HCO3 ABG 19.4 mmol/L (22-26); Oxygen Device VENT; PO2 ABG 79.1 mmHg (80.0-100.0)
[2020-04-19 06:03] LABS: Anion Gap 18.6 (5-19); Aspartate Amino Transferase 63 U/L (0-32); Potassium 3.6 mmol/L (3.5-5.1)
[2020-04-19 06:31] LABS: Glucose Point of Care 151 mg/dL (70-110)
[2020-04-19] MEDS: propofol 1,000 MG/100 ML INJ 26.1 MG IV ×4 (09:30→23:19)
[2020-04-19] MEDS: enoxaparin 100 mg/mL Syringe SUBCUT ×2 (09:31→20:02)
[2020-04-19] MEDS: sertraline 50 mg Tablet 100 MG PO (09:32)
[2020-04-19] MEDS: sodium bicarbonate 650 mg Tablet PO (09:32)
[2020-04-19] MEDS: amlodipine 10 mg Tablet PO (10:03)
[2020-04-19] MEDS: aspirin 81 mg EC Tablet PO ×2 (10:05→17:09)
[2020-04-19] MEDS: acetaminophen 325 mg Tablet 650 MG PO ×2 (10:05→23:47)
[2020-04-19] MEDS: atorvastatin 40 mg Tablet PO (10:07)
[2020-04-19 11:21] LABS: Glucose Point of Care 165 mg/dL (70-110)
--- NOTE | 2020-04-19 11:29 | P.PN_ITS ---
Subjective Subjective: Interval history: Events of last night noted. Required endotracheal intubation. Had significant confusion. Somewhat stabilized currently. FiO2 weaning. Medications: Reviewed: Yes Vitals/I&O/Wt Last Vital Signs Temp 100.2 F H 04/19/20 03:39 Pulse 65 04/19/20 10:57 Resp 23 H 04/19/20 10:57 BP 111/56 04/19/20 06:00 Pulse Ox 92 04/19/20 10:57 04/18/20 04/19/20 04/19/20 22:59 06:59 14:59 Intake Total 510 / 920 205.505 / 1125.505 186.340 / 186.340 Output Total 425 / 1076 550 / 1626 Balance 85 / -156 -344.495 / -500.495 186.340 / 186.340 Physical Exam Narrative: EXAM NARRATIVE: General exam sedated on the ventilator Cardiovascular regular rate and rhythm without murmur, no S3 or S4 Lungs a few coarse breath sounds bilaterally and occasional wheeze Abdomen is soft nontender with positive bowel sounds. Extremities no cyanosis clubbing. Trace edema Urinary Catheter Management^: Dennison: Cath Placed During This Visit: yes Reason for Continuing Indwelling Catheter: Accurate Measurement of Urinary Output in Critically Ill Patients Urinary Catheter Date of Insertion: 04/15/20 Urinary Catheter Time of Insertion: 18:30 Data : 04/19/20 03:40 04/19/20 03:40 Micro: Microbiology 04/18/20 18:20 C.difficile Toxin B Gene (PCR) - Final Stool Routine Collection A&P Assessment and plan (1) Pneumonia due to COVID-19 virus: Continue dexamethasone Continue remdesivir Albuterol as needed She has now been intubated Continue full dose anticoagulation. Possible CTA if renal function improves. Continue Zosyn. MRSA PCR negative Secondary to worsening respiratory status 40 mg of Lasix IV x1, to evaluate if this improves her respiratory condition Prognosis guarded Check inflammatory markers tomorrow Status: Acute (2) Acute respiratory failure: See above Status: Acute (3) Anemia: Mild, monitor. No history of active bleeding. Continues to remain stable Status: Acute (4) Acute kidney injury: Urinalysis was checked and no evidence of infection Avoid anti-inflammatories which she has apparently been taking at home Renal function is slowly improved Status: Acute Additional A&P Information Mild hypokalemia, resolved Nutrition. Initiate tube feeds history of CHF. Lasix 40 mg IV x1 history of obstructive sleep apnea. Diabetes. Reduce Lantus to 10 units is going to tube feeds. Sliding scale insu corby. Continue to monitor Sugars still acceptable Hypertension, reduce Norvasc as sedation has decreased blood pressure slightly Neuropathy, continue Neurontin GERD, continue proton pump inhibitor History of depression. Reduced dose of SSRI slightly Full code Lovenox will suffice for DVT prophylaxis Attestations Medical Necessity Statement*: Needs continued hospital stay, for treatment of COVID-19 pneumonia, severe secondary to endotracheal intubation and mechanical ventilation Critical Care Time: 43 minutes of critical care time spent at bedside, reviewing events of last night, examination, formulating a plan in this patient with severe COVID-19 pneumonia, renal insufficiency, multiple medical comorbidities with high risk of morbidity and mortality. 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
[2020-04-19] MEDS: FUROsemide 10 mg/mL SDV 4mL 40 MG IVP (11:40)
--- NOTE | 2020-04-19 12:08 | USCV_ITS ---
José Roxann Age: 74 Gender: F : 1945 Exam Date: 04/19/2020 12:32 Ordering Phys: Oswaldo Ribera MD Technologist: Josefa Malcolm Exam Location: [facility] [place] Indication: Respiratory failure BP: 111 / 56 HR: 68 Rhythm: Sinus Technical Quality: Technically difficult study MEASUREMENTS (Male / Female) Normal Values 2D ECHO LV Diastolic Diameter PLAX 3.2 cm 4.2 - 5.9 / 3.9 - 5.3 cm LV Systolic Diameter PLAX 2.0 cm LV Chamber Size 3.9 cm IVS Diastolic Thickness 1.9 cm 0.6 - 1.0 / 0.6 - 0.9 cm IVS Systolic Thickness 2.2 cm LVPW Diastolic Thickness 1.4 cm 0.6 - 1.0 / 0.6 - 0.9 cm LVPW Systolic Thickness 1.9 cm RV Chamber Size 2.6 cm LV Ejection Fraction 2D Teich 69.2 % LV Ejection Fraction MOD 2C 66.2 % LV Ejection Fraction 2C AL 67.3 % LA Width 2.9 cm LA Height 5.1 cm RA Width 2.0 cm RA Height 3.5 cm DOPPLER TR Peak Velocity 207.0 cm/s TR Peak Gradient 17.1 mmHg Right Atrial Pressure 15.0 mmHg Pulmonary Artery Systolic Pressu 32.1 mmHg FINDINGS Left Ventricle No regional wall motion abnormalities. Normal left ventricular size and systolic function, EF 72 %. Right Ventricle Normal right ventricular size and systolic function. Right Atrium Normal right atrial size. Left Atrium Mildly increased left atrial size. Mitral Valve No gross abnormalities noted Aortic Valve No gross abnormalities noted Tricuspid Valve No gross abnormalities noted Pulmonic Valve Pulmonic valve not well visualized. Pericardium No pericardial effusion. Aorta Normal aortic annulus size. CONCLUSIONS Normal left ventricular size and systolic function, EF 72 %. No regional wall motion abnormalities. Mildly increased left atrial size. There is no pericardial effusion. There are no intracardiac masses. Compared to the previous study from 08/26/2016, there may not be a significant change in the 2-dimensional findings Dr Jethro Sykes MD [facility] (Electronically Signed) Final Date: 19 April 2020 13:45 S
--- NOTE | 2020-04-19 12:24 | PC.NUTR ---
NUTR TF RECOMMENDATIONS: Jevity with goal rate of 50 ml/hr providing 1440 kcal (68%), 66 g PRO (100%), and 968 ml fluid (46%)(%NEEDS). Suggest starting TF at 20 ml/hr and increase by 10 ml Q6H as tolerated till goal rate is met. Suggest 170 ml H2O flushes Q4H to approach fluid needs or per physician. Additional kcal from diprivan of 689 totals kcal to 2129 (100%).
[2020-04-19 16:53] LABS: Glucose Point of Care 167 mg/dL (70-110)
--- NOTE | 2020-04-19 17:28 | PC.NURSE ---
AM ASSESSMENT NOTED SCDS NOT ATTACHED AND ELECTRICAL PLUG IN AT END OF BED NOT FUNCTIONAL SO LINE PLUGGED IN ACROSS ROOM AND TAPE TO ELECTRICAL LINE ON FLOOR . OGT PLACEMENT CHECKED AND GOO SUCTION SET UP , SMALL AMT OF CLEAR TO GREEN OUTPUT. BLOOD SUGARS HAVE BEEN SLIGHTLY ELEVATED BUT REQUIRED ONLY 4 TO 6 UNITS. PATIENT BATHED MID MORNING AND SHEETS CHANGED. SPOKE TO FAMILY AT 1500 to update on patients status and comfort. she awakens and follows commands at 25 mcg of dipravan and 25 mcg of fentanyl . maintaining sedation at 35 mcg of dipravan. turning q 2 hrs, sats appear to be best when patient is on her right side .
[2020-04-19] MEDS: insulin glargine 100 units/1 mL 10 UNIT SUBCUT (20:07)
[2020-04-19 23:12] LABS: Glucose Point of Care 170 mg/dL (70-110)
[2020-04-20] VITALS (34 sets, daily range): BP systolic 97–152; BP diastolic 52–72; PULSE 52–87; RESP 14–21; TEMP 36.3–38.3; O2SAT 91–96
--- NOTE | 2020-04-20 00:42 | PC.NURSE ---
Pt continues to breath in the 30's and appears agitated so Propofol and Fentanyl have both been increased to allow her to rest. Will continue to monitor.
[2020-04-20] MEDS: propofol 1,000 MG/100 ML INJ 32.7 MG IV ×4 (03:08→12:13)
[2020-04-20] MEDS: piperacillin-tazobactam 3.375 GM in sodium chloride 0.9% (plus) 50 ML IV ×3 (04:23→20:40)
[2020-04-20 05:23] LABS: Glucose Point of Care 265 mg/dL (70-110)
[2020-04-20 05:36] LABS: ABG PCO2 31.2 mmHg (35-45); ABG PH Result 7.39 (7.35-7.45); Arterial Blood Gas Hematocrit 34.1 % (37-47); Blood Gas Operator Identificat JB; Blood Gas Sample Site Brachial, right; Blood Gas Sample Type Arterial; Oxygen Device VENT; PO2 ABG 70.4 mmHg (80.0-100.0)
[2020-04-20 06:07] LABS: Basophils % 0.3 %; Hematocrit 30.9 % (37.0-47.0); Hemoglobin 9.7 g/dL (11.5-15.3); Lymphocytes # 0.5 10^3/uL (0.8-4.8); Lymphocytes % 4.2 %; Mean Corpuscular HGB Conc 31.4 g/dL (30.0-36.0); Mean Corpuscular Hemoglobin 26.7 pg (28.0-34.0); Mean Corpuscular Volume 85.1 fL (81-99); Mean Platelet Volume 12.5 fL (7.4-10.4); Monocytes # 0.2 10^3/uL (0.2-0.9); Neutrophils # 10.76 10^3/uL (1.8-7.7); Neutrophils % 91.5 %; Nucleated Red Blood Cells % 0 %; Platelet Count 301 10^3/cmm (130-400); Red Blood Count 3.63 10^6/uL (4.1-5.3); Red Cell Distribution Width 15.5 % (12.1-15.1); White Blood Count 11.7 10^3/uL (4.0-10.0)
[2020-04-20 06:18] LABS: D Dimer 0.65 ug/mIFEU (0-0.59)
[2020-04-20 06:41] LABS: C Reactive Protein 134.4 mg/L (0.0-4.9); Procalcitonin 1.03 ng/mL (0-0.5)
[2020-04-20 06:42] LABS: Alanine Aminotransferase 18 U/L (0-33); Albumin Level 2.7 g/dL (3.5-5.2); Alkaline Phosphatase 70 IU/L (35-105); Anion Gap 21.4 (5-19); Aspartate Amino Transferase 44 U/L (0-32); Blood Urea Nitrogen 68 mg/dL (8-23); Calcium 7.9 mg/dL (8.5-10.5); Carbon Dioxide 16 mmol/L (22-29); Chloride 112 mmol/L (98-107); Globulin 3.4 g/dL (1.3-4.6); Glucose 230 mg/dL (65-115); Osmolality Calculated 329 mOsm/kg (285-295); Potassium 3.4 mmol/L (3.5-5.1); Sodium 146 mmol/L (136-145); Total Bilirubin 0.2 mg/dL (0.15-1.2); Total Protein 6.1 g/dL (6.6-8.7)
--- NOTE | 2020-04-20 07:00 | XRR_ITS ---
PROCEDURE INFORMATION: Exam: XR Chest, 1 View Exam date and time: 04/20/2020 7:54 AM Age: 74 years old Clinical indication: Condition or disease; Lung condition and disease; Respiratory failure; Status not specified; Additional info: Resp failure TECHNIQUE: Imaging protocol: XR of the chest Views: 1 view. COMPARISON: CR (CHEST, ) 04/18/2020 11:25 PM FINDINGS: Tubes, catheters and devices: An endotracheal tube and nasogastric tube project in satisfactory position. Lungs: The pulmonary vascularity is normal. There are bibasilar pulmonary infiltrates. These have not significantly changed allowing for differences in technique and inspiratory level since 04/18/2020. Pleural space: Unremarkable. No pleural effusion. No pneumothorax. Heart/Mediastinum: The cardiac silhouette is not enlarged. Bones/joints: Unremarkable. XR/XR chest 1V portable [id number] IMPRESSION: 1. Satisfactory endotracheal tube and nasogastric tube position. 2. Bibasilar pulmonary infiltrates similar to previous study.
[2020-04-20] MEDS: enoxaparin 100 mg/mL Syringe SUBCUT (09:10)
[2020-04-20] MEDS: amlodipine 10 mg Tablet 5 MG PO (09:11)
[2020-04-20] MEDS: atorvastatin 40 mg Tablet PO (09:11)
[2020-04-20] MEDS: gabapentin 300 mg Capsule PO ×3 (09:11→20:40)
[2020-04-20] MEDS: aspirin 81 mg EC Tablet PO ×2 (09:11→17:40)
[2020-04-20] MEDS: sertraline 50 mg Tablet 100 MG PO (09:12)
--- NOTE | 2020-04-20 10:09 | PC.NURSE ---
PICC Dr. Becerra order PICC line. Called Alisson Nunes for consent, second with Joy Bertrand RN. PICC to be placed by ky.
--- NOTE | 2020-04-20 10:20 | XRR_ITS ---
PROCEDURE INFORMATION: Exam: XR Chest, 1 View Exam date and time: 04/20/2020 11:18 AM Age: 74 years old Clinical indication: Device placement; Picc; Additional info: Picc placement (will call to room when ready) TECHNIQUE: Imaging protocol: XR of the chest Views: 1 view. COMPARISON: CR XR chest 1V portable [id number] 04/20/2020 7:56 AM FINDINGS: Tubes, catheters and devices: An endotracheal tube, nasogastric tube and right arm PICC projects in satisfactory position with the tip projecting in the SVC.. Lungs: There are extensive bilateral pulmonary infiltrates specially in the left lung. The infiltrates in the left lung appear to have worsened since the previous study even allowing for differences in technique. Pleural space: No pleural effusion or pneumothorax is seen. Heart/Mediastinum: The heart is not enlarged. Bones/joints: Unremarkable. XR/XR chest 1V portable [id number] IMPRESSION: 1. Satisfactory endotracheal tube, PICC and nasogastric tube position. 2. Worsening bilateral pulmonary infiltrates.
--- NOTE | 2020-04-20 11:22 | PC.SOCIAL ---
IMM Update Pg. 2 of IMM Updated with patient's daughter over the phone. Verbalized understanding.
--- NOTE | 2020-04-20 12:06 | P.PN_ITS ---
Subjective Subjective: Interval history: Patient is intubated and sedated: Current GCS is 10T off sedation. AM ABG: pH 7.3, PCO2 31, PO2: 70, FiO2 75: PF ratio: 93 ET tube was changed this morning: Due to cuff leak: She has received Lasix and albumin today in the morning. Medications: Reviewed: Yes Vitals/I&O/Wt Last Vital Signs Temp 98.8 F 04/20/20 08:00 Pulse 69 04/20/20 10:00 Resp 16 04/20/20 11:03 BP 110/66 04/20/20 10:00 Pulse Ox 92 04/20/20 10:00 04/19/20 04/20/20 04/20/20 22:59 06:59 14:59 Intake Total 216.963 / 553.303 911.828 / 1465.131 770 / 770 Output Total 350 / 575 600 / 1175 Balance -133.037 / -21.697 311.828 / 290.131 770 / 770 Physical Exam Narrative: EXAM NARRATIVE: Intubated sedated GCS 10 T. HENMT: COMMON NORMALS: normocephalic, atraumatic, hearing grossly normal bilaterally and external ears normal HEAD & SCALP: normocephalic and atraumatic EXTERNAL EAR: Yes external ears normal Eye: COMMON NORMALS: no scleral icterus GENERAL EYE: appearance normal, both eyes and all related structures Chest: COMMONS NORMALS: normal inspection of the chest and normal palpation of entire chest wall CHEST: Yes Symmetrical chest wall rise Resp: OTHER: Coarse breath sound bilateral, diminished breath sounds at both bases, bilateral basal crackles. Cardio: COMMON NORMALS: regular rate, regular rhythm, S1 normal heart sound present, S2 normal heart sound present, No gallops present (Cardio), No murmurs present (Cardio), No rub (Cardio) and Peripheral pulses 2+ throughout RATE: regular rate RHYTHM: regular rhythm HEART SOUNDS: S1 normal heart sound present and S2 normal heart sound present PERIPHERAL PULSES: Peripheral pulses 2+ throughout GI: COMMON NORMALS: Normal to inspection, nondistended, normoactive bowel sounds present, Soft to palpation, non-tender, No hepatosplenomegaly present and no masses AUSCULTATION: Yes normoactive bowel sounds PALPATION: Yes Soft to palpation and Yes No hepatosplenomegaly present RECTAL EXAM: deferred Extremity: NARRATIVE EXTREMITY EXAM: 1+ bilateral lower extremity edema present. Urinary Catheter Management^: Dennison: Cath Placed During This Visit: yes Reason for Continuing Indwelling Catheter: Accurate Measurement of Urinary Output in Critically Ill Patients Urinary Catheter Date of Insertion: 04/15/20 Urinary Catheter Time of Insertion: 18:30 Data : 04/20/20 03:50 04/20/20 03:50 Micro: Microbiology 04/15/20 11:20 Blood Culture - Final Blood NO GROWTH AFTER 5 DAYS A&P Assessment and plan (1) Acute respiratory failure: Acute hypoxic respiratory failure: Secondary to Covid pneumonia: Currently intubated on mechanical vent. Ph: 7.3, PCO2 31, PO2: 70, FiO2 75: PF ratio: 93 Active proning Hold feed Has received Lasix 40 Mg and albumin today 2D: Echo: No regional wall motion abnormalities. Normal left ventricular size and systolic function, EF 72 %. Continue Zosyn for possible superimposed bacterial pneumonia. Vanco was discontinued as MRSA PCR negative. Status: Acute (2) Pneumonia due to COVID-19 virus: Continue dexamethasone Continue remdesivir Albuterol as needed She has now been intubated Continue full dose anticoagulation. Possible CTA if renal function improves. Continue Zosyn. MRSA PCR negative Secondary to worsening respiratory status 40 mg of Lasix IV x1, to evaluate if this improves her respiratory condition Prognosis guarded Status: Acute (3) Anemia: Mild, monitor. No history of active bleeding. Continues to remain stable Status: Acute (4) Acute kidney injury: Urinalysis was checked and no evidence of infection Avoid anti-inflammatories which she has apparently been taking at home Renal function is slowly improved Status: Acute Additional A&P Information Mild hypokalemia, : Serum potassium is: 3.4: Plan is to give her for 40 mEq potassium through G-tube. Nutrition. Initiate tube feeds history of CHF. Lasix 40 mg IV x1 history of obstructive sleep apnea. Diabetes. Lantus 10 units is going to tube feeds. Sliding scale insulin. Continue to monitor Sugars still acceptable Hypertension, reduce Norvasc as sedation has decreased blood pressure slightly Neuropathy, continue Neurontin GERD, continue proton pump inhibitor History of depression. Reduced dose of SSRI slightly Full code Lovenox will suffice for DVT prophylaxis Attestations Medical Necessity Statement*: Patient is to be in hospital for the management of acute hypoxic respiratory failure secondary to Covid pneumonia. 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
[2020-04-20 12:24] LABS: Glucose Point of Care 209 mg/dL (70-110)
[2020-04-20] MEDS: FUROsemide 10 mg/mL SDV 4mL 40 MG IVP ×2 (13:48→17:40)
--- NOTE | 2020-04-20 14:21 | XRR_ITS ---
PROCEDURE INFORMATION: Exam: XR Chest, 1 View Exam date and time: 04/20/2020 3:00 PM Age: 74 years old Clinical indication: Device placement; Ett placement (vent status); Additional info: Intubation tube placement TECHNIQUE: Imaging protocol: XR of the chest Views: 1 view. COMPARISON: CR XR chest 1V portable [id number] 04/20/2020 11:02 AM FINDINGS: Tubes, catheters and devices: A PICC line is present on the right side extending into the SVC. Endotracheal tube is in place 3 cm above the josafat NG tube extends into the stomach Lungs: Diffuse parenchymal consolidations are seen in the left lower lobe corresponding to pneumonia. This finding has increased since prior. There is interstitial congestion in the right lower lobe. Pleural space: Unremarkable. No pleural effusion. No pneumothorax. Heart/Mediastinum: Unremarkable. No cardiomegaly. Bones/joints: Unremarkable. XR/XR chest 1V portable [id number] IMPRESSION: 1. Left lower lobe pneumonia increased since prior 2. Endotracheal tube is in place as described. 3. Right PICC line extends to the SVC 4. NG tube is in the stomach 5. Right lower lobe interstitial congestion
--- NOTE | 2020-04-20 15:06 | P.TS_ITS ---
Transfer Summary Providers Date of Admission: 04/15/20 14:41 Date of Discharge: 04/21/20 Attending Provider at Admission: Oswaldo Ribera MD Attending Provider at Transfer: Bruce Becerra MD Primary Care Provider: Claudio Parnell DO Anticipated Date of Transfer: Anticipated date of transfer: 04/21/20 Receiving Facility & Provider: Receiving Provider: [] Receiving facility: [] Diagnoses at Discharge Discharge Diagnosis (1) Acute respiratory failure: Status: Acute (2) Pneumonia due to COVID-19 virus: Status: Acute (3) Anemia: Status: Acute (4) Acute kidney injury: Status: Acute Reason for Visit Reason for Visit: COVID, RESP DISTRESS Hospital Course Hospital Course: 74 year old female with PMH,HTN,HFpEF, DM,was admitted with c/o worseing short of breath over last several days as She has been coughing. He was diagnosed with Covid pneumonia on 04/08. Initially kept on BiPAP which she failed to respond and finally she was intubated on 04/18 for worsening respiratory status.Currently intubated and sedated on mechanical vent. She was started on Covid protocol, currently on remdesivir day day 8 as well as on dexamethasone. She was also covered for possible bacterial pneumonia initially on Vanco and Zosyn. Vancomycin was discontinued as MRSA PCR was negative. 2D echo done on 1017: Showed no RWMA EF of: 72%, Mildly increased left atrial size. There is no pericardial effusion. There are no intracardiac masses. CT angio was not done: Due to worsening renal function: But currently she is on therapeutic anticoagulation: With heparin drip.She also received 200 cc of convalescent plasma, on 04/21/2020. Patient is being transferred to higher level of care as she may need hemodialysis//CRRT. Physical Exam Narrative: EXAM NARRATIVE: Intubated sedated currently GCS: 10T HENMT: COMMON NORMALS: normocephalic, atraumatic, hearing grossly normal bilaterally and external ears normal HEAD & SCALP: normocephalic and atraumatic EXTERNAL EAR: Yes external ears normal Eye: COMMON NORMALS: no scleral icterus GENERAL EYE: appearance normal, both eyes and all related structures Chest: COMMONS NORMALS: normal inspection of the chest and normal palpation of entire chest wall CHEST: Yes Symmetrical chest wall rise Resp: OTHER: Coarse breath sound bilateral, diminished breath sounds at both bases, bilateral basal crackles. Cardio: COMMON NORMALS: regular rate, regular rhythm, S1 normal heart sound present, S2 normal heart sound present, No gallops present (Cardio), No murmurs present (Cardio), No rub (Cardio) and Peripheral pulses 2+ throughout RATE: regular rate RHYTHM: regular rhythm HEART SOUNDS: S1 normal heart sound present and S2 normal heart sound present PERIPHERAL PULSES: Peripheral pulses 2+ throughout GI: COMMON NORMALS: Normal to inspection, nondistended, normoactive bowel sounds present, Soft to palpation, non-tender, No hepatosplenomegaly present and no masses AUSCULTATION: Yes normoactive bowel sounds PALPATION: Yes Soft to palpation and Yes No hepatosplenomegaly present RECTAL EXAM: deferred Extremity: NARRATIVE EXTREMITY EXAM: 1+ bilateral lower extremity edema present. Urinary Catheter Management^: [place]: Cath Placed During This Visit: yes Reason for Continuing Indwelling Catheter: Accurate Measurement of Urinary Output in Critically Ill Patients Urinary Catheter Date of Insertion: 04/15/20 Urinary Catheter Time of Insertion: 18:30 TS Data Data Completed and Pending: Completed Studies During Hospitalization Category Date Time Status XR chest 1V santino ble [id number] Routine Exams 04/20/20 07:00 Completed XR chest 1V santino ble [id number] Routine Exams 04/20/20 10:20 Completed XR chest 1V santino ble [id number] Stat Exams 04/15/20 10:46 Completed XR chest 1V santino ble [id number] Stat Exams 04/18/20 22:34 Completed CV echo limited 9 3308 Routine Ultrasound 04/19/20 12:08 Completed Pending at discharge Category Date Time Status XR chest 1V santino ble [id number] Routine Exams 04/20/20 14:21 Taken ABG FULL [Arteria l Blood Gas Full] Stat Lab 04/20/20 15:03 Ordered Sputum Culture an d Gram Stain Stat Lab 04/15/20 10:46 Uncollected Labs from last 24 hours 04/20/20 04/20/20 04/20/20 12:18 05:24 05:20 WBC RBC Hgb Hct MCV MCH MCHC RDW Plt Count MPV Neut % (Auto) Lymph % (Auto) [place] % (Auto) Eos % (Auto) Baso % (Auto) Neut # (Auto) Lymph # (Auto) [place] # (Auto) Eos # (Auto) Baso # (Auto) Nucleated RBC % (a uto) Nucleated RBCs # D-Dimer Specimen Type Arterial Sample Site Brachial, right ABG pH 7.39 ABG pCO2 31.2 L ABG pO2 70.4 L ABG HCO3 19.0 L ABG Base Excess -5.0 L Vinay Test N/a Hematocrit 34.1 L O2 Delivery Device Vent FiO2 75.0 PEEP 10.0 Information Systems Planner ID Uvaldo Sodium Potassium Chloride Carbon Dioxide Anion Gap BUN Creatinine GFR Calculation Glucose POC Glucose 209 265 Calculated Osmolal ity Calcium Total Bilirubin AST ALT Alkaline Phosphata se C-Reactive Protein Total Protein Albumin Globulin Procalcitonin 04/20/20 04/20/20 04/20/20 03:50 03:50 03:50 WBC 11.7 H RBC 3.63 L Hgb 9.7 L Hct 30.9 L MCV 85.1 MCH 26.7 L MCHC 31.4 RDW 15.5 H Plt Count 301 MPV 12.5 H Neut % (Auto) 91.5 Lymph % (Auto) 4.2 [place] % (Auto) 2.0 Eos % (Auto) 0.0 Baso % (Auto) 0.3 Neut # (Auto) 10.76 H Lymph # (Auto) 0.5 L [place] # (Auto) 0.2 Eos # (Auto) 0.0 Baso # (Auto) 0.0 Nucleated RBC % (a uto) 0 Nucleated RBCs # 0.0 D-Dimer Specimen Type Sample Site ABG pH ABG pCO2 ABG pO2 ABG HCO3 ABG Base Excess Vinay Test Hematocrit O2 Delivery Device FiO2 PEEP Information Systems Planner ID Sodium 146 H Potassium 3.4 L Chloride 112 H Carbon Dioxide 16 L Anion Gap 21.4 H BUN 68 H Creatinine 2.2 H GFR Calculation Not Reportable Glucose 230 H POC Glucose Calculated Osmolal ity 329 H Calcium 7.9 L Total Bilirubin 0.2 AST 44 H ALT 18 Alkaline Phosphata se 70 C-Reactive Protein Total Protein 6.1 L Albumin 2.7 L Globulin 3.4 Procalcitonin 1.03 H 04/20/20 04/20/20 04/19/20 03:50 03:50 23:03 WBC RBC Hgb Hct MCV MCH MCHC RDW Plt Count MPV Neut % (Auto) Lymph % (Auto) [place] % (Auto) Eos % (Auto) Baso % (Auto) Neut # (Auto) Lymph # (Auto) [place] # (Auto) Eos # (Auto) Baso # (Auto) Nucleated RBC % (a uto) Nucleated RBCs # D-Dimer 0.65 H Specimen Type Sample Site ABG pH ABG pCO2 ABG pO2 ABG HCO3 ABG Base Excess Vinay Test Hematocrit O2 Delivery Device FiO2 PEEP Information Systems Planner ID Sodium Potassium Chloride Carbon Dioxide Anion Gap BUN Creatinine GFR Calculation Glucose POC Glucose 170 Calculated Osmolal ity Calcium Total Bilirubin AST ALT Alkaline Phosphata se C-Reactive Protein 134.4 H Total Protein Albumin Globulin Procalcitonin 04/19/20 16:51 WBC RBC Hgb Hct MCV MCH MCHC RDW Plt Count MPV Neut % (Auto) Lymph % (Auto) [place] % (Auto) Eos % (Auto) Baso % (Auto) Neut # (Auto) Lymph # (Auto) [place] # (Auto) Eos # (Auto) Baso # (Auto) Nucleated RBC % (a uto) Nucleated RBCs # D-Dimer Specimen Type Sample Site ABG pH ABG pCO2 ABG pO2 ABG HCO3 ABG Base Excess Vinay Test Hematocrit O2 Delivery Device FiO2 PEEP Information Systems Planner ID Sodium Potassium Chloride Carbon Dioxide Anion Gap BUN Creatinine GFR Calculation Glucose POC Glucose 167 Calculated Osmolal ity Calcium Total Bilirubin AST ALT Alkaline Phosphata se C-Reactive Protein Total Protein Albumin Globulin Procalcitonin Vitals: Last Vital Signs Temp 98.8 F 04/20/20 08:00 Pulse 60 04/20/20 14:00 Resp 14 04/20/20 14:00 BP 139/70 04/20/20 14:00 Pulse Ox 91 04/20/20 14:00 TS Medications Medications Home Medications alendronate 70 mg tablet 70 mg PO .once weekly tab 08/12/19 [History Confirmed 03/04/20] atorvastatin 40 mg tablet 40 mg PO DAILY 08/12/19 [History Confirmed 03/04/20] fluticasone propionate 50 mcg/actuation nasal spray,suspension 2 spray INTRANASAL DAILY 08/12/19 [History Confirmed 03/04/20] gabapentin 300 mg capsule 300 mg PO TID 08/12/19 [History Confirmed 03/04/20] insulin detemir U-100 100 unit/mL (3 mL) subcutaneous pen 30 unit SUBCUT .AT BEDTIME ml 08/12/19 [History Confirmed 03/04/20] insulin lispro 100 unit/mL subcutaneous pen 1 unit SUBCUT TID ml 08/12/19 [History Confirmed 03/04/20] meclizine 25 mg tablet 25 mg PO BID 08/12/19 [History Confirmed 03/04/20] omeprazole 40 mg capsule,delayed release 40 mg PO DAILY 08/12/19 [History Confirmed 03/04/20] sertraline 100 mg tablet 100 mg PO BID tab 08/12/19 [History Confirmed 03/04/20] tramadol 50 mg tablet 50 - 100 mg PO BID PRN tab 08/12/19 [History Confirmed 03/04/20] acetaminophen 325 mg capsule 325 mg PO QID PRN 09/02/19 [History Confirmed 03/03/20] ascorbic acid (vitamin C) 1,000 mg tablet 500 mg PO BID 09/02/19 [History Confirmed 03/04/20] bisacodyl 10 mg rectal suppository 10 mg [place] DAILY PRN 09/02/19 [History Confirmed 03/04/20] bisacodyl 5 mg tablet,delayed release 5 mg PO DAILY 09/02/19 [History Confirmed 03/04/20] ibuprofen 800 mg tablet 800 mg PO Q8H 09/02/19 [History Confirmed 03/03/20] methenamine hippurate 1 gram tablet 1 gm PO BID 09/02/19 [History Confirmed 03/04/20] nitroglycerin 0.4 mg sublingual tablet 0.4 mg SUBLINGUAL Q5M PRN 09/02/19 [History Confirmed 03/04/20] polyethylene glycol 3350 17 gram/dose oral powder 17 gm PO DAILY 09/02/19 [History Confirmed 03/04/20] amlodipine 10 mg tablet 10 mg PO DAILY 90 Days #90 tab 09/12/19 [Rx Confirmed 03/04/20] furosemide 20 mg tablet 20 mg PO DAILY 90 Days #90 tab 09/12/19 [Rx Confirmed 03/04/20] aspirin 81 mg tablet,delayed release 81 mg PO BID tab 03/03/20 [History Confirmed 03/04/20] cholecalciferol (vitamin D3) 25 mcg (1,000 unit) capsule 25 mcg PO DAILY 03/03/20 [History Confirmed 03/04/20] trazodone 100 mg tablet 150 mg PO DAILY tab 03/03/20 [History Confirmed 03/04/20] Active Medications Acetaminophen (Tylenol) 650 mg PO Q6H PRN PRN Reason: Mild/Mod Pain Or Temp >/= 101 Last Admin: 04/19/20 23:47 Dose: 650 mg Documented by: Albuterol Sulfate (Ventolin) 2 puff INHALATION Q4H.RESPIRATORY PRN PRN Reason: SHORTNESS OF BREATH Albuterol Sulfate (Albuterol) 2.5 mg INHALATION Q4H.RESPIRATORY PRN PRN Reason: SHORTNESS OF BREATH Last Admin: 04/19/20 23:25 Dose: 2.5 mg Documented by: Amlodipine Besylate (Norvasc) 5 mg PO DAILY [facility] Last Admin: 04/20/20 09:11 Dose: 5 mg Documented by: Aspirin (Aspirin Ec) 81 mg PO BID [facility] Last Admin: 04/20/20 09:11 Dose: 81 mg Documented by: Atorvastatin Calcium (Lipitor) 40 mg PO DAILY [facility] Last Admin: 04/20/20 09:11 Dose: 40 mg Documented by: Dexamethasone (Decadron) 6 mg IVP Q24H [facility] Last Admin: 04/19/20 21:39 Dose: 6 mg Documented by: Dextrose (D50w) 25 ml IVP ONCE PRN; Protocol PRN Reason: hypoglycemia protocol Dextrose (D50w) 50 ml IVP PRN PRN; Protocol PRN Reason: hypoglycemia protocol Dextrose (D50w) 25 ml IVP ONCE PRN; Protocol PRN Reason: hypoglycemia protocol Dextrose (D50w) 50 ml IVP PRN PRN; Protocol PRN Reason: hypoglycemia protocol Enoxaparin Sodium (Lovenox) 100 mg SUBCUT Q24H [facility] Gabapentin (Neurontin) 300 mg PO TID [facility] Last Admin: 04/20/20 13:48 Dose: 300 mg Documented by: Glucagon (Glucagen) 1 mg IM ONCE PRN; Protocol PRN Reason: Adult Acute Hypoglycemia Prot. Glucagon (Glucagen) 1 mg IM ONCE PRN; Protocol PRN Reason: Adult Acute Hypoglycemia Prot. Hydralazine HCl (Apresoline) 10 mg IVP Q4H PRN PRN Reason: HYPERTENSION Dextrose (D5w) 500 mls @ 100 mls/hr IV ONCE PRN; Protocol PRN Reason: Adult Acute Hypoglycemia Prot Dextrose (D5w) 500 mls @ 100 mls/hr IV ONCE PRN; Protocol PRN Reason: Adult Acute Hypoglycemia Prot Piperacillin Sod/Tazobactam (Sod 3.375 gm/ Sodium Chloride) 50 mls @ 12.5 mls/hr IV Q8H [facility]; Protocol Last Admin: 04/20/20 12:27 Dose: 12.5 mls/hr Documented by: Propofol (Diprivan) 1,000 mg in 100 mls @ 0 mls/hr IV .Q0M [facility]; Protocol Last Titration: 04/20/20 14:34 Dose: 60 mcg/kg/min, 39.2 mls/hr Documented by: Fentanyl 1,000 mcg/ Sodium (Chloride) 100 mls @ 0 mls/hr IV .Q0M [facility]; Protocol Last Titration: 04/20/20 14:34 Dose: 100 mcg/hr, 10 mls/hr Documented by: Dexmedetomidine HCl 400 mcg/ (Sodium Chloride) 104 mls @ 0 mls/hr IV .Q0M [facility]; Protocol Potassium Chloride (K-Colten) 100 mls @ 25 mls/hr IV ONCE ONE Stop: 04/20/20 19:03 Insulin Aspart (Novolog) 0 unit SUBCUT WM&BEDTIME [facility]; Protocol Last Admin: 04/20/20 12:27 Dose: 6 unit Documented by: Insulin Glargine (Lantus) 10 unit SUBCUT BEDTIME [facility] Last Admin: 04/19/20 20:07 Dose: 10 unit Documented by: Ondansetron HCl (Zofran) 4 mg IVP Q6H PRN PRN Reason: NAUSEA AND VOMITING Sertraline HCl (Zoloft) 100 mg PO DAILY [facility] Last Admin: 04/20/20 09:12 Dose: 100 mg Documented by: Discharge Plan Discharge Patient Disposition: Home Condition: Stable Prescriptions: No Action tramadol 50 mg tablet 50 - 100 mg PO BID PRNRF: 0 atorvastatin 40 mg tablet 40 mg PO DAILY RF: 0 fluticasone propionate [Flonase Allergy Relief] 50 mcg/actuation spray,suspension 2 spray INTRANASAL DAILY RF: 0 alendronate [Fosamax] 70 mg tablet 70 mg PO .once weekly RF: 0 omeprazole 40 mg capsule,delayed release(DR/EC) 40 mg PO DAILY RF: 0 sertraline [Zoloft] 100 mg tablet 100 mg PO BID RF: 0 gabapentin 300 mg capsule 300 mg PO TID RF: 0 insulin lispro [Humalog KwikPen Insulin] 100 unit/mL insulin pen 1 unit SUBCUT TID RF: 0 Levemir FlexTouch U-100 Insuln 100 unit/mL (3 mL) insulin pen 30 unit SUBCUT .AT BEDTIME RF: 0 meclizine 25 mg tablet 25 mg PO BID RF: 0 trazodone 100 mg tablet 150 mg PO DAILY RF: 0 cholecalciferol (vitamin D3) 25 mcg (1,000 unit) capsule 25 mcg PO DAILY RF: 0 bisacodyl [Dulcolax (bisacodyl)] 5 mg tablet,delayed release (DR/EC) 5 mg PO DAILY RF: 0 bisacodyl [Dulcolax (bisacodyl)] 10 mg suppository 10 mg [place] DAILY PRNRF: 0 ibuprofen 800 mg tablet 800 mg PO Q8H RF: 0 methenamine hippurate 1 gram tablet 1 gm PO BID RF: 0 polyethylene glycol 3350 [Miralax] 17 gram/dose powder 17 gm PO DAILY RF: 0 nitroglycerin 0.4 mg tablet, sublingual 0.4 mg SUBLINGUAL Q5M PRNRF: 0 acetaminophen [Tylenol] 325 mg capsule 325 mg PO QID PRNRF: 0 ascorbic acid (vitamin C) 1,000 mg tablet 500 mg PO BID RF: 0 aspirin [Adult Low Dose Aspirin] 81 mg tablet,delayed release (DR/EC) 81 mg PO BID RF: 0 amlodipine 10 mg tablet 10 mg PO DAILY 90 Days Qty: 90 RF: 3 furosemide 20 mg tablet 20 mg PO DAILY 90 Days Qty: 90 RF: 3 [address]errals: [facility] [Outside] (Return at discharge) Transfer Attestations Time Spent in Transfer Care*: greater than 30 min Specific Discharge Activities: Specific discharge activities: educating and/or supporting family/caregiver, discussing with pcp/other providers, discussing with case packer and sealer/social workers/dc planners, documenting/other paperwork and evaluating patient/reviewing data Quality Metrics Clinical Quality Measures: During this hospital stay, did patient experience: None Coding Level of Care Code Acute Senior Qa Analyst for [facility] Fwd Exam Detailed Diagnoses Acute respiratory failure J96.00 Pneumonia due to COVID-19 virus U07.1; J12.89 Anemia D64.9 Acute kidney injury N17.9
[2020-04-20] MEDS: dexmedetomidine 400 MCG in sodium chloride 0.9% (100 ml) 100 ML 56.6 MCG IV (15:20)
[2020-04-20] MEDS: potassium chloride premix 100 ML 25 MEQ IV (16:25)
[2020-04-20 16:33] LABS: ABG PCO2 32.7 mmHg (35-45); ABG PH Result 7.38 (7.35-7.45); Alveolar-Arterial Oxygen Gradi 55.2 mmHg (5-10); Arterial Blood Gas Hematocrit 40.2 % (37-47); Blood Gas Allen Test Pos; Blood Gas Sample Type Arterial; HCO3 ABG 19.2 mmol/L (22-26); HGB O2 Sat 91.5 % (95-100); Ionized Calcium Level - ABG 1.1 mmol/L (1.1-1.4); Methemoglobin 0.8 % (0.4-1.5); Oxygen Saturation ABG 92.2; PO2 ABG 69.6 mmHg (80.0-100.0); Potassium Level - ABG 3.5 mmol/L (3.5-5.0); Total Hemoglobin 13.1 g/dL (12-16)
[2020-04-20 16:35] LABS: Blood Gas Sample Site Brachial, right; Oxygen Device VENT
[2020-04-20 16:47] LABS: Glucose Point of Care 138 mg/dL (70-110)
--- NOTE | 2020-04-20 18:49 | P.CONIM_ITS ---
Providers/Reason For Consult Consulting Physican/Specialty*: Dr. Hickey Datar/Pulmonary Critical Care Reason for Consult*: Ventilator management in Pt with hypoxemic respiratory failure due to ARDS in COVID-19 pneumonia Attending Physician: Bruce Becerra MD Primary Care Provider: Claudio Parnell DO History of Present Illness History of Present Illness Roxann Kumar is a 74 year old female with PMH Hypertensive CHF, DM, GERD, HTN, presented to ED with several days SOB on 04/15 - admitted to [facility] for acute hypoxemic respiratory failure due to covid-19 pneumonia - worsening O2 requirements and got intubated 04/18. Currently on remdesivir, dexamethasone and Lasix. She was on pressure control with PIP 21, PEEP 12 and FIO2 75% and abg 7.38/32/69/19/92% pt was sedated well with fentanyl 50, precedex 0.8. labs revealed hypernatremia 146, increased anion gap acidosis corrected 20, lactate 2.8, hypokalemia 3.4, worsening renal parameters since admission. reducing UOP, with positive fluid balance since am ~ 900 cc (net positive 1999 since admission) received lasix 40 mg am Review of Systems General: Reports: ROS unobtainable due to endotracheal tube and ROS u nobtainable due to mental status Meds/Allergies Home Medications and Allergies Home Medications Medication Instructions Recorded Confirmed Last Taken Type alendronate 70 mg tablet 70 mg PO .once weekly tab 08/12/19 03/04/20 Unknown History atorvastatin 40 mg tablet 40 mg PO DAILY 08/12/19 03/04/20 Unknown History fluticasone propionate 50 2 spray INTRANASAL DAILY 08/12/19 03/04/20 Unknown History mcg/actuation nasal spray,suspension gabapentin 300 mg capsule 300 mg PO TID 08/12/19 03/04/20 Unknown History insulin detemir U-100 100 unit/mL 30 unit SUBCUT .AT BEDTIME ml 08/12/19 03/04/20 Unknown History (3 mL) subcutaneous pen insulin lispro 100 unit/mL 1 unit SUBCUT TID ml 08/12/19 03/04/20 Unknown History subcutaneous pen meclizine 25 mg tablet 25 mg PO BID 08/12/19 03/04/20 Unknown History omeprazole 40 mg capsule,delayed 40 mg PO DAILY 08/12/19 03/04/20 Unknown History release sertraline 100 mg tablet 100 mg PO BID tab 08/12/19 03/04/20 Unknown History tramadol 50 mg tablet 50 - 100 mg PO BID PRN tab 08/12/19 03/04/20 Unknown History acetaminophen 325 mg capsule 325 mg PO QID PRN 09/02/19 03/03/20 Unknown History ascorbic acid (vitamin C) 1,000 mg 500 mg PO BID 09/02/19 03/04/20 Unknown History tablet bisacodyl 10 mg rectal suppository 10 mg [place] DAILY PRN 09/02/19 03/04/20 Unknown History bisacodyl 5 mg tablet,delayed 5 mg PO DAILY 09/02/19 03/04/20 Unknown History release ibuprofen 800 mg tablet 800 mg PO Q8H 09/02/19 03/03/20 Unknown History methenamine hippurate 1 gram tablet 1 gm PO BID 09/02/19 03/04/20 Unknown History nitroglycerin 0.4 mg sublingual 0.4 mg SUBLINGUAL Q5M PRN 09/02/19 03/04/20 U nknown History tablet polyethylene glycol 3350 17 17 gm PO DAILY 09/02/19 03/04/20 Unknown History gram/dose oral powder amlodipine 10 mg tablet 10 mg PO DAILY 90 Days #90 tab 09/12/19 03/04/20 Unknown Rx furosemide 20 mg tablet 20 mg PO DAILY 90 Days #90 tab 09/12/19 03/04/20 Unknown Rx aspirin 81 mg tablet,delayed 81 mg PO BID tab 03/03/20 03/04/20 Unknown History release cholecalciferol (vitamin D3) 25 25 mcg PO DAILY 03/03/20 03/04/20 Unknown History mcg (1,000 unit) capsule trazodone 100 mg tablet 150 mg PO DAILY tab 03/03/20 03/04/20 Unknown History Allergies Allergy/AdvReac Type Severity Reaction Status Date / Time metronidazole [From Flagyl] AdvReac Mild itching Verified 04/15/20 10:45 nitrofurantoin AdvReac Mild felt sick Verified 04/15/20 10:45 [From Macrobid] Current Medications Current Medications Generic Name Dose Route Start Last Admin Trade Name Freq PRN Reason Stop Dose Admin Acetaminophen 650 mg 04/15/20 19:20 04/19/20 23:47 Tylenol PO 650 mg Q6H PRN Administration Mild/Mod Pain Or Temp >/= 101 Albuterol Sulfate 2.5 mg 04/19/20 03:38 04/19/20 23:25 Albuterol INHALATION 2.5 mg Q4H.RESPIRATORY PRN Administration SHORTNESS OF BREATH Amlodipine Besylate 5 mg 04/20/20 09:00 04/20/20 09:11 Norvasc PO 5 mg DAILY MERCEDEZ Administration Aspirin 81 mg 04/15/20 19:20 04/20/20 17:40 Aspirin Ec PO 81 mg BID MERCEDEZ Administration Atorvastatin Calcium 40 mg 04/16/20 09:00 04/20/20 09:11 Lipitor PO 40 mg DAILY MERCEDEZ Administration Dexamethasone 6 mg 04/16/20 22:00 04/19/20 21:39 Decadron IVP 6 mg Q24H MERCEDEZ Administration Gabapentin 300 mg 04/15/20 19:20 04/20/20 13:48 Neurontin PO 300 mg TID MERCEDEZ Administration Piperacillin Sod/Tazobactam 50 mls @ 12.5 mls/hr 04/16/20 12:30 04/20/20 16:42 Sod 3.375 gm/ Sodium Chloride IV Infused Q8H MERCEDEZ Infusion Protocol Propofol 1,000 mg in 100 mls @ 0 mls/hr 04/18/20 22:45 04/20/20 16:05 Diprivan IV Infused .Q0M MERCEDEZ Titration Protocol Per Protocol Fentanyl 1,000 mcg/ Sodium 100 mls @ 0 mls/hr 04/19/20 01:45 04/20/20 16:03 Chloride IV 50 mcg/hr .Q0M MERCEDEZ 5 mls/hr Titration Protocol Per Protocol Dexmedetomidine HCl 400 mcg/ 104 mls @ 0 mls/hr 04/20/20 14:45 04/20/20 16:03 Sodium Chloride IV 0.3 mcg/kg/hr .Q0M MERCEDEZ 8.5 mls/hr Titration Protocol Per Protocol Potassium Chloride 100 mls @ 25 mls/hr 04/20/20 15:30 04/20/20 16:25 K-Colten IV 04/20/20 19:29 25 mls/hr ONCE ONE Administration Insulin Aspart 0 unit 04/15/20 19:20 04/20/20 16:57 Novolog SUBCUT Not Given WM&BEDTIME MERCEDEZ Protocol Insulin Glargine 10 unit 04/19/20 21:00 04/19/20 20:07 Lantus SUBCUT 10 unit BEDTIME MERCEDEZ Administration Sertraline HCl 100 mg 04/19/20 09:00 04/20/20 09:12 Zoloft PO 100 mg DAILY MERCEDEZ Administration PFSH Acute PFSH: Medical History CHF (congestive heart failure) Depression Diabetes mellitus with insulin therapy Diabetic neuropathy DJD (degenerative joint disease) GERD (gastroesophageal reflux disease) Hyperlipidemia Hypertension, accelerated Hypertensive CHF Obesity Obstructive sleep apnea Uses CPAP 12 cm water pressure Recurrent UTI Urinary incontinence, mixed Surgical History H/O knee surgery H/O: hysterectomy History of cholecystectomy Family History Father , at age 51 Chronic kidney disease (CKD) Diabetes Mother , at age 81 No problems noted. Other Cancer Kidney disease Stroke Social History Smoking and tobacco status: never smoked Alcohol intake: never Adopted: No Caregiver/support person: No Lives independently: No Housing: [facility] Marital status: / Current occupational status: disabled History of recent travel: No Current gender identity: Female Vitals/I&O/Wt Last Vital Signs Temp 98.8 F 04/20/20 08:00 Pulse 56 L 04/20/20 18:00 Resp 16 04/20/20 17:19 BP 110/63 04/20/20 18:00 Pulse Ox 94 04/20/20 18:00 04/20/20 04/20/20 04/20/20 06:59 14:59 22:59 Intake Total 911.828 / 3091.060 1590.897 / 1144.897 91.130 / 1236.027 Output Total 600 / 1175 Balance 311.828 / 667.943 7486.897 / 1144.897 91.130 / 1236.027 Physical Exam Narrative: EXAM NARRATIVE: PHYSICAL EXAM: General: lying in bed, sedated and intubated. HEENT:NCAT, PERRLA, Neck: Supple Lungs: reduc ed breath sound bilateral bases L > R Heart: s1/s2, RRR Abd: soft, NT, ND, BS + Normoactive Extremities: No edema SUPERVISOR BLOOD: sedated and limited SUPERVISOR BLOOD exam possible. SKIN: no rash # PICC line placed today 04/20/2020 Urinary Catheter Management^: Dennison: Cath Placed During This Visit: yes Reason for Continuing Indwelling Catheter: Accurate Measurement of Urinary Output in Critically Ill Patients Urinary Catheter Date of Insertion: 04/15/20 Urinary Catheter Time of Insertion: 18:30 Data Micro: Micro: Microbiology 04/15/20 12:55 Blood Culture - Fi nal Blood NO GROWTH AFTER 5 DAYS 04/15/20 11:20 Blood Culture - Fi nal Blood NO GROWTH AFTER 5 DAYS Other Data: Other data: reviewed imaging, labs and other inverstigations A&P Assessment and plan (1) Acute respiratory failure with hypoxia: Status: Acute (2) Acute respiratory distress syndrome (ARDS) due to COVID-19 virus: Status: Acute (3) Acute kidney injury: Status: Acute (4) Pneumonia due to COVID-19 virus: Status: Acute (5) CHF (congestive heart failure): Status: Acute Qualifiers: Heart failure type: unspecified Heart failure chronicity: unspecified Qualified Code(s): I50.9 - Heart failure, unspecified (6) Metabolic acidosis with increased anion gap and accumulation of organic acids: Status: Acute (7) Hypertension, accelerated: Status: Acute Additional A&P Information # Acute hypoxic respiratory failure due to ARDS in COVID- 19 Pneumonia in pt with underlying H/O Hypertensive Heart failure/MARION - sedated with fentanyl and precedex; also has underlying worsening uremia - intubated 04/18 and mechanically ventilated due to acute hypoxic resp failure due to ARDS secondary to COVID-19 pneumonia. - also has h/o MARION - On PC PIP 21/PEEP 12/FIO2 75% - ABG 7.38/31/69/19/92%; Compliance good; p plateau 19; pulling at times TVs >650 - 800 cc - pt sedation changed from propofol to predex; already on fentanyl 50 - Changed from PC mode to VC mode with TV 420/ RR 14/ PEEP 14 and FIO2 75% - ABG after 1 hr and adjust vent settings accordingly - to keep pH > 7.25 that allows for low TV - monitor for possible coexisting metabolic acidosis in view of worsening renal failure - Can give bicarb to keep HCO3 above 15 and monitor Ca to keep correct Ca > 8 - monitor I/O and try to keep pt negative to even - lasix 40 mg given in am with only 300 cc UOP & recommended to give lasix 40 mg more - monitor electrolytes mg, K and supplement to keep mg > 2 and K > 4 - With worsening uremia, creatinine, acidosis - seems like pt. is heading towards requiring CRRT especially if no adequate response to lasix. - Echo reported normal LV fx with EF 72%; Hemodynmically stable - not on pressors - Amlodipine 10 daily for HTN, ASA, Lipitor for CAD ppx - DC lipitor if LFTs worsen - pt received dexamethasone, remdesivir for covid 19 pneumonia - Elevated procalcitonin can be related to renal failure - already covered with zosyn - all cultures so far negative - trying to get Plasma as per hospitalist. - diabetes: Lantus 10 at night; Monitor sugars and adjust scale coverage accoridingly to keep sugars < 200 - Heparin gtt for anticoagulation. monitor aptt q 6 hr code: full dvt ppx: heparin prognosis:Grave Recommendations conveyed to Hospitalist covering the patient. Consult Attestations Medical Necessity Statement: Acute hypoxic respiratory failure requiring mechanical ventilation; due to ARDS due to covid - 19 pneumonia, with worsening acute kidney injury and metabolic acidosis Time Spent in Patient Care: Greater than 35 minutes (>than 50% of time spent in counselling and/or direct pt care on unit) . 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
--- NOTE | 2020-04-20 19:22 | PC.NURSE ---
1800 Prone Patient placed in prone position x5 staff members (including RT and MD) at [address] Becerra's orders. Order for 16hr prone/8 hours back. Pillows placed at pressure points. Lines and tubes clear. Telemetry on back.
[2020-04-20 20:08] LABS: Glucose Point of Care 150 mg/dL (70-110)
[2020-04-20] MEDS: insulin glargine 100 units/1 mL 10 UNIT SUBCUT (20:41)
[2020-04-20 22:05] LABS: Platelet Count 279 10^3/cmm (130-400)
[2020-04-20] MEDS: heparin drip 25,000 UNIT/500 ML PREMIX 30.5 UNIT IV (22:08)
[2020-04-20] MEDS: heparin 5,000 unit/mL INJ 1 mL IV (22:11)
[2020-04-20 22:13] LABS: Partial Thromboplastin Time 45.5 SECONDS (23.9-36.7)
[2020-04-20] MEDS: dexamethasone 4 mg/mL INJ 6 MG IVP (22:24)
[2020-04-20] MEDS: propofol 1,000 MG/100 ML INJ 16.3 MG IV (23:14)
[2020-04-21] VITALS (40 sets, daily range): BP systolic 83–136; BP diastolic 38–97; PULSE 45–92; RESP 14–20; TEMP 36.9–37.3; O2SAT 88–98
--- NOTE | 2020-04-21 01:48 | PC.NURSE ---
Notified Dr Daigle of pt heart rate of upper 40's. Precedex was paused at 2330 when pts heart rate started dipping down below 50. BP is 99/47 at this time and although soft it has not been much lower than that. Dr Daigle said to continue to monitor and if BP does lower we could start on meds. Pt is prone at this time and doing well. See vital signs. First dose of convelescent plasma is running now.
[2020-04-21 04:57] LABS: ABG PCO2 36.5 mmHg (35-45); ABG PH Result 7.33 (7.35-7.45); Arterial Blood Gas Hematocrit 36.6 % (37-47); Base Excess ABG -5.8 mmol/L (-2.0-2.0); Blood Gas Sample Site Radial, right; Blood Gas Sample Type Arterial; HCO3 ABG 19.4 mmol/L (22-26); HGB O2 Sat 94.5 % (95-100); Ionized Calcium Level - ABG 1.2 mmol/L (1.1-1.4); Methemoglobin 0.8 % (0.4-1.5); Oxygen Device VENT; Oxygen Saturation ABG 95.3; PO2 ABG 90.1 mmHg (80.0-100.0); Potassium Level - ABG 4.2 mmol/L (3.5-5.0); Total Hemoglobin 11.9 g/dL (12-16)
[2020-04-21 04:58] LABS: Blood Gas Tidal Volume 0.43
[2020-04-21] MEDS: propofol 1,000 MG/100 ML INJ 16.3 MG IV ×3 (05:05→18:12)
[2020-04-21] MEDS: piperacillin-tazobactam 3.375 GM in sodium chloride 0.9% (plus) 50 ML IV ×3 (05:05→20:44)
--- NOTE | 2020-04-21 05:27 | PC.NURSE ---
Notified Dr Daigle of pt PTT of 169. Ordered to decrease heparin by 4 units/kg/hr. Will continue to monitor.
[2020-04-21 06:02] LABS: Basophils % 0.2 %; Eosinophils # 0.1 10^3/uL (0.0-0.8); Eosinophils % 0.4 %; Hematocrit 27.6 % (37.0-47.0); Hemoglobin 8.3 g/dL (11.5-15.3); Lymphocytes # 0.5 10^3/uL (0.8-4.8); Lymphocytes % 3.9 %; Mean Corpuscular HGB Conc 30.1 g/dL (30.0-36.0); Mean Corpuscular Hemoglobin 25.9 pg (28.0-34.0); Monocytes # 0.2 10^3/uL (0.2-0.9); Monocytes % 1.4 %; Neutrophils # 10.92 10^3/uL (1.8-7.7); Neutrophils % 91.7 %; Nucleated Red Blood Cells % 0 %; Platelet Count 270 10^3/cmm (130-400); Red Blood Count 3.21 10^6/uL (4.1-5.3); Red Cell Distribution Width 15.8 % (12.1-15.1); White Blood Count 11.9 10^3/uL (4.0-10.0)
[2020-04-21 06:03] LABS: Slide Review Slide Review Perform
[2020-04-21 06:30] LABS: Glucose Point of Care 202 mg/dL (70-110)
[2020-04-21 06:50] LABS: Alanine Aminotransferase 40 U/L (0-33); Albumin Level 2.9 g/dL (3.5-5.2); Alkaline Phosphatase 118 IU/L (35-105); Aspartate Amino Transferase 92 U/L (0-32); Calcium 8.2 mg/dL (8.5-10.5); Carbon Dioxide 18 mmol/L (22-29); Chloride 115 mmol/L (98-107); Globulin 3.2 g/dL (1.3-4.6); Glucose 205 mg/dL (65-115); Magnesium 2.4 mg/dL (1.7-2.3); Osmolality Calculated 335 mOsm/kg (285-295); Sodium 147 mmol/L (136-145); Total Bilirubin 0.8 mg/dL (0.15-1.2); Total Protein 6.1 g/dL (6.6-8.7)
--- NOTE | 2020-04-21 06:57 | XRR_ITS ---
PROCEDURE INFORMATION: Exam: XR Chest, 1 View Exam date and time: 04/21/2020 9:47 AM Age: 74 years old Clinical indication: Condition or disease; Lung condition and disease; Pneumonia; Additional info: Pna, covid TECHNIQUE: Imaging protocol: XR of the chest Views: 1 view. COMPARISON: CR XR chest 1V portable [id number] 04/20/2020 2:41 PM FINDINGS: Tubes, catheters and devices: An endotracheal tube and nasogastric tube projects in satisfactory position. A right arm PICC is present with tip directed into the origin of the right internal jugular vein. Lungs: There is diffuse bilateral consolidation consistent with pneumonia especially in the left lung. The pneumonia has not significantly changed since yesterday's film. Pleural space: Unremarkable. No pleural effusion. No pneumothorax. Heart/Mediastinum: Unremarkable. No cardiomegaly. Bones/joints: Unremarkable. XR/XR chest 1V portable [id number] IMPRESSION: 1. The tip of the right arm PICC projects in the proximal right internal jugular vein. 2. Satisfactory endotracheal tube and nasogastric tube position. 3. Stable bilateral pneumonia especially in the left lung.
[2020-04-21 07:06] LABS: Partial Thromboplastin Time 169.5 SECONDS (23.9-36.7)
[2020-04-21 07:13] LABS: Blood Urea Nitrogen 82 mg/dL (8-23)
[2020-04-21] MEDS: amlodipine 10 mg Tablet 5 MG PO (08:26)
[2020-04-21] MEDS: aspirin 81 mg EC Tablet PO ×2 (08:26→17:35)
[2020-04-21] MEDS: sertraline 50 mg Tablet 100 MG PO (08:26)
[2020-04-21] MEDS: gabapentin 300 mg Capsule PO (08:26)
[2020-04-21] MEDS: atorvastatin 40 mg Tablet PO (08:26)
[2020-04-21 10:43] LABS: ABG PCO2 33.2 mmHg (35-45); ABG PH Result 7.37 (7.35-7.45); Alveolar-Arterial Oxygen Gradi 52.1 mmHg (5-10); Arterial Blood Gas Hematocrit 32.5 % (37-47); Base Excess ABG -5.3 mmol/L (-2.0-2.0); Blood Gas Allen Test Pos; Blood Gas Operator Identificat CAK; Blood Gas Sample Site Radial, left; Blood Gas Sample Type Arterial; Blood Gas Tidal Volume 0.42; Carboxyhemoglobin < 0.0 %THgb (0.4-20.1); HCO3 ABG 19.2 mmol/L (22-26); HGB O2 Sat 94.9 % (95-100); Ionized Calcium Level - ABG 1.2 mmol/L (1.1-1.4); Methemoglobin 0.9 % (0.4-1.5); Oxygen Device VENT; Oxygen Saturation ABG 95.7; PO2 ABG 91.8 mmHg (80.0-100.0); Potassium Level - ABG 3.9 mmol/L (3.5-5.0); Total Hemoglobin 10.6 g/dL (12-16)
[2020-04-21 11:32] LABS: Glucose Point of Care 155 mg/dL (70-110)
--- NOTE | 2020-04-21 11:55 | PM.ACPR ---
Acute Procedures Intubation: Time out performed: Yes Sedative: fentanyl ET tube size: 8 ET tube uncuffed: Yes Tube secured location: lips Tube placement confirmation: equal breath sounds bilaterally and color change noted Patient tolerated procedure: well Additional comments: ET tube cuff leak was significant. Hence decision was made to change the ET tube over bougie with a new ET tube. Patient tolerated the procedure well, postprocedure chest x-ray was done, which showed the new ET tube, in correct position.
--- NOTE | 2020-04-21 13:49 | P.CONIM_ITS ---
Providers/Reason For Consult Consulting Physican/Specialty*: Nephrology Reason for Consult*: SCOT Attending Physician: Bruce Becerra MD Primary Care Provider: Claudio Parnell DO History of Present Illness History of Present Illness Roxann Kumar is a 74 year old female. Thank you for consultation. Today I reviewed this 74-year-old female, who presented with shortness of breath and cough, classic Covid 19 symptoms, was subsequently diagnosed with COVID-19. She has worsening oxygen requirements and got intubated on 04/18. She received the combination of remdesivir, dexamethasone and convalescent plasma and has been intermittently diuresed. She is currently intubated and mechanically ventilated. She can give no history. The history is taken from the EMR, bedside nurse and Dr. Becerra. Over the last few days her renal function has been getting worse, creatinine is now up to 2.8. She is making a reasonable amount of urine. Diuretics were held today. Hemodynamics have been relatively stable. She was on amlodipine. This is now held. She has no overt edema. She is maintaining her oxygen levels well on FiO2 60% Review of Systems General: Reports: ROS unobtainable due to endotracheal tube Meds/Allergies Home Medications and Allergies Home Medications Medication Instructions Recorded Confirmed Last Taken Type alendronate 70 mg tablet 70 mg PO .once weekly tab 08/12/19 03/04/20 Unknown History atorvastatin 40 mg tablet 40 mg PO DAILY 08/12/19 03/04/20 Unknown History fluticasone propionate 50 2 spray INTRANASAL DAILY 08/12/19 03/04/20 Unknown History mcg/actuation nasal spray,suspension gabapentin 300 mg capsule 300 mg PO TID 08/12/19 03/04/20 Unknown History insulin detemir U-100 100 unit/mL 30 unit SUBCUT .AT BEDTIME ml 08/12/19 03/04/20 Unknown History (3 mL) subcutaneous pen insulin lispro 100 unit/mL 1 unit SUBCUT TID ml 08/12/19 03/04/20 Unknown History subcutaneous pen meclizine 25 mg tablet 25 mg PO BID 08/12/19 03/04/20 Unknown History omeprazole 40 mg capsule,delayed 40 mg PO DAILY 08/12/19 03/04/20 Unknown History release sertraline 100 mg tablet 100 mg PO BID tab 08/12/19 03/04/20 Unknown History tramadol 50 mg tablet 50 - 100 mg PO BID PRN tab 08/12/19 03/04/20 Unknown History acetaminophen 325 mg capsule 325 mg PO QID PRN 09/02/19 03/03/20 Unknown History ascorbic acid (vitamin C) 1,000 mg 500 mg PO BID 09/02/19 03/04/20 Unknown History tablet bisacodyl 10 mg rectal suppository 10 mg [place] DAILY PRN 09/02/19 03/04/20 Unknown History bisacodyl 5 mg tablet,delayed 5 mg PO DAILY 09/02/19 03/04/20 Unknown History release ibuprofen 800 mg tablet 800 mg PO Q8H 09/02/19 03/03/20 Unknown History methenamine hippurate 1 gram tablet 1 gm PO BID 09/02/19 03/04/20 Unknown History nitroglycerin 0.4 mg sublingual 0.4 mg SUBLINGUAL Q5M PRN 09/02/19 03/04/20 Unknown History tablet polyethylene glycol 3350 17 17 gm PO DAILY 09/02/19 03/04/20 Unknown History gram/dose oral powder amlodipine 10 mg tablet 10 mg PO DAILY 90 Days #90 tab 09/12/19 03/04/20 Unknown Rx furosemide 20 mg tablet 20 mg PO DAILY 90 Days #90 tab 09/12/19 03/04/20 Unknown Rx aspirin 81 mg tablet,delayed 81 mg PO BID tab 03/03/20 03/04/20 Unknown History release cholecalciferol (vitamin D3) 25 25 mcg PO DAILY 03/03/20 03/04/20 Unknown History mcg (1,000 unit) capsule trazodone 100 mg tablet 150 mg PO DAILY tab 03/03/20 03/04/20 Unknown History Allergies Allergy/AdvReac Type Severity Reaction Status Date / Time metronidazole [From Flagyl] AdvReac Mild itching Verified 04/15/20 10:45 nitrofurantoin AdvReac Mild felt sick Verified 04/15/20 10:45 [From Macrobid] Current Medications Current Medications Generic Name Dose Route Start Last Admin Trade Name Freq PRN Reason Stop Dose Admin Acetaminophen 650 mg 04/15/20 19:20 04/19/20 23:47 Tylenol PO 650 mg Q6H PRN Administration Mild/Mod Pain Or Temp >/= 101 Albuterol Sulfate 2.5 mg 04/19/20 03:38 04/21/20 11:33 Albuterol INHALATION 2.5 mg Q4H.RESPIRATORY PRN Administration SHORTNESS OF BREATH Aspirin 81 mg 04/15/20 19:20 04/21/20 08:26 Aspirin Ec PO 81 mg BID MERCEDEZ Administration Dexamethasone 6 mg 04/16/20 22:00 04/20/20 22:24 Decadron IVP 6 mg Q24H MERCEDEZ Administration Heparin Sodium (Beef Lung) 0 unit 04/20/20 19:27 04/20/20 22:11 Heparin IV 5,300 unit PRN PRN Administration Heparin weight-base protocol Protocol Piperacillin Sod/Tazobactam 50 mls @ 12.5 mls/hr 04/16/20 12:30 04/21/20 12:57 Sod 3.375 gm/ Sodium Chloride IV 100 mls/hr Q8H MERCEDEZ Administration Protocol Propofol 1,000 mg in 100 mls @ 0 mls/hr 04/18/20 22:45 04/21/20 11:37 Diprivan IV 25 mcg/kg/min .Q0M MERCEDEZ 16.3 mls/hr Administration Protocol Per Protocol Fentanyl 1,000 mcg/ Sodium 100 mls @ 0 mls/hr 04/19/20 01:45 04/21/20 03:12 Chloride IV 100 mcg/hr .Q0M MERCEDEZ 10 mls/hr Administration Protocol Per Protocol Dexmedetomidine HCl 400 mcg/ 104 mls @ 0 mls/hr 04/20/20 14:45 04/20/20 23:29 Sodium Chloride IV 0 mcg/kg/hr .Q0M MERCEDEZ 0 mls/hr Titration Protocol Per Protocol Heparin Sodium/Sodium Chloride 25,000 unit in 500 mls @ 0 mls/hr 04/20/20 19:30 04/21/20 05:24 Heparin Drip IV 10 unit/kg/hr .Q0M MERCEDEZ 21.8 mls/hr Titration Protocol Per Protocol Insulin Aspart 0 unit 04/15/20 19:20 04/21/20 12:56 Novolog SUBCUT 4 unit WM&BEDTIME MERCEDEZ Administration Protocol Insulin Glargine 10 unit 04/19/20 21:00 04/20/20 20:41 Lantus SUBCUT 10 unit BEDTIME MERCEDEZ Administration PFSH Acute 2 PFSH: Medical History (Updated 04/20/20 @ 20:15 by Ruperto Bush MD) CHF (congestive heart failure) Depression Diabetes mellitus with insulin therapy Diabetic neuropathy DJD (degenerative joint disease) GERD (gastroesophageal reflux disease) Hyperlipidemia Hypertension, accelerated Hypertensive CHF Obesity Obstructive sleep apnea Uses CPAP 12 cm water pressure Recurrent UTI Urinary incontinence, mixed Surgical History H/O knee surgery H/O: hysterectomy History of cholecystectomy Family History Father , at age 51 Chronic kidney disease (CKD) Diabetes Mother , at age 81 No problems noted. Other Cancer Kidney disease Stroke Social History Smoking and tobacco status: never smoked Alcohol intake: never Adopted: No Caregiver/support person: No Lives independently: No Housing: Shelter Marital status: / Current occupational status: disabled History of recent travel: No Current gender identity: Female Vitals/I&O/Wt Last Vital Signs Temp 98.7 F 04/21/20 08:00 Pulse 48 L 04/21/20 11:33 Resp 19 H 04/21/20 11:33 BP 100/60 04/21/20 11:00 Pulse Ox 92 04/21/20 11:33 04/20/20 04/21/20 04/21/20 22:59 06:59 14:59 Intake Total 179.455 / 1324.352 630.333 / 1954.685 200 / 200 Output Total 300 / 300 900 / 1200 100 / 100 Balance -120.545 / 1024.352 -269.667 / 754.685 100 / 100 Weight last 48 hrs Weight 101.514 kg Weight 102.693 kg Physical Exam Narrative: EXAM NARRATIVE: Constitutional: Intubated and vented HEENT: Wet mucosa, no jvp, non icteric Lungs: Bilaterally clear without discernible wheeze, rales in all lung zones CVS: S1 S2, no murmurs Abdo: Soft, BS ok Ext 4: Minimal edema, peripheral perfusion with no cyanosis Neurological: Sedated Urinary Catheter Management^: Dennison: Cath Placed During This Visit: yes Reason for Continuing Indwelling Catheter: Accurate Measurement of Urinary Output in Critically Ill Patients Urinary Catheter Date of Insertion: 04/15/20 Urinary Catheter Time of Insertion: 18:30 Data Micro: Micro: Microbiology 04/20/20 19:55 C.difficile Toxin B Gene (PCR) - Zachary brothers Stool 04/15/20 12:55 Blood Culture - Fi nal Blood NO GROWTH AFTER 5 DAYS 04/15/20 11:20 Blood Culture - Fi nal Blood NO GROWTH AFTER 5 DAYS A&P Additional A&P Information 1. SCOT - Acute kidney injury in these patients may come from both hemodynamic insult i.e. renal hypoperfusion, cytokine mediated tubular injury. - She has no acute indication for hemodialysis today. Clinically euvolemic, Lasix now being held. Depending upon how she fares over the next few days will dictate how dry we need to keep which will increase the risk to renal function. We will check renal ultrasound scan Urine studies to include urinalysis, urine sodium, creatinine, urea We will check uric acid and CPK Avoid usual nephrotoxic agents Strict ins and outs 2. Vent dependent respiratory failure Due to COVID-19 infection Being treated with remdesivir, dexamethasone Antibiotic coverage with Zosyn 3. Hemodynamics Blood pressure is currently well maintained. Amlodipine has been stopped. May need pressors 4. Electrolytes Noncritical operation including mild hyponatremia and acidosis Continue to monitor these for the time being i.e. if acidosis gets worse may need sodium bicarb, however, will avoid the sodium exposure for the time being Case discussed with bedside nurse and Dr. 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
[2020-04-21 14:20] LABS: Uric Acid 6.1 mg/dL (2.4-5.7)
[2020-04-21 14:28] LABS: Creatine Phosphokinase 382 U/L (26-192)
[2020-04-21 16:44] LABS: Glucose Point of Care 161 mg/dL (70-110)
[2020-04-21 16:52] LABS: Add Urine Microscopic? NO
--- NOTE | 2020-04-21 17:01 | P.PN_ITS ---
Subjective Subjective: Interval history: Patient is intubated and sedated. Current GCS of sedation is 10T. Vitals and labs have been reviewed. Medications: Reviewed: Yes Vitals/I&O/Wt Last Vital Signs Temp 98.4 F 04/21/20 16:00 Pulse 74 04/21/20 16:00 Resp 16 04/21/20 15:15 BP 131/65 04/21/20 16:00 Pulse Ox 89 L 04/21/20 16:00 04/21/20 04/21/20 04/21/20 06:59 14:59 22:59 Intake Total 630.333 / 1954.685 300 / 300 50 / 350 Output Total 900 / 1200 200 / 200 Balance -269.667 / 754.685 100 / 100 50 / 150 Weight last 48 hrs Weight 101.514 kg Weight 102.693 kg Physical Exam HENMT: COMMON NORMALS: normocephalic, atraumatic, hearing grossly normal bilaterally and external ears normal HEAD & SCALP: normocephalic and atraumatic EXTERNAL EAR: Yes external ears normal Eye: COMMON NORMALS: no scleral icterus GENERAL EYE: appearance normal, both eyes and all related structures Chest: COMMONS NORMALS: normal inspection of the chest and normal palpation of entire chest wall CHEST: Yes Symmetrical chest wall rise Resp: OTHER: Bilateral minimal basal crackles present in both lung rivera. Cardio: COMMON NORMALS: regular rate, regular rhythm, S1 normal heart sound present, S2 normal heart sound present, No gallops present (Cardio), No murmurs present (Cardio), No rub (Cardio) and Peripheral pulses 2+ throughout RATE: regular rate RHYTHM: regular rhythm HEART SOUNDS: S1 normal heart sound present and S2 normal heart sound present PERIPHERAL PULSES: Peripheral pulses 2+ throughout GI: COMMON NORMALS: Normal to inspection, nondistended, normoactive bowel sounds present, Soft to palpation, non-tender, No hepatosplenomegaly present and no masses AUSCULTATION: Yes normoactive bowel sounds PALPATION: Yes Soft to palpation and Yes No hepatosplenomegaly present RECTAL EXAM: deferred Extremity: NARRATIVE EXTREMITY EXAM: Trace bilateral pitting edema of both lower extremity Urinary Catheter Management^: Dennison: Cath Placed During This Visit: yes Reason for Continuing Indwelling Catheter: Accurate Measurement of Urinary Output in Critically Ill Patients Urinary Catheter Date of Insertion: 04/15/20 Urinary Catheter Time of Insertion: 18:30 Data : 04/21/20 04:10 04/21/20 06:05 Micro: Microbiology 04/20/20 19:55 C.difficile Toxin B Gene (PCR) - Final Stool 04/15/20 12:55 Blood Culture - Final Blood NO GROWTH AFTER 5 DAYS A&P Assessment and plan (1) Acute respiratory failure with hypoxia: Acute hypoxic respiratory failure: Secondary ARDS 2/2 Covid pneumonia: S/p convalescent plasma 200 CC ON 04/21 Currently on remdesivir and dexamethasone intubated on mechanical vent. Active proning Hold feed Continue Zosyn for possible superimposed bacterial pneumonia. Vanco was discontinued as MRSA PCR negative. 2D: Echo: No regional wall motion abnormalities. Normal left ventricular size and systolic function, EF 72 %. Status: Acute (2) Diabetes mellitus with insulin therapy: Continue Lantus 10 U SC at nighttime. Continue medium dose sliding scale insulin. Currently tube feeding is on hold. Will start her on D5 half-normal saline at 50 cc an hour. Status: Acute (3) Acute kidney injury: SCOT versus SCOT on CKD: Likely secondary to Covid related complications. Serum creatinine has bumped up to 2.8 with BUN of 84. Baseline serum creatinine: Is 1.5. Renal is on board Lasix has been on hold today. We will continue to monitor BMP. Status: Acute (4) Metabolic acidosis with increased anion gap and accumulation of organic acids: Likely secondary to worsening renal function. We will continue to monitor serum bicarb: With a goal bicarb of greater than 15. Currently no need for bicarb replacement. Will be careful with bicarb replacement, as this can result hypokalemia. Status: Acute (5) Anemia: Continue to monitor CBC. No need for transfusion now Status: Acute (6) Hypertension, accelerated: Currently blood pressure is well controlled. Amlodipine discontinued, to maintain a good MAP, anticipating possible hemodialysis. Status: Acute (7) CHF (congestive heart failure): Currently compensated. We will continue to reassess the volume status and accordingly dose Lasix. Status: Acute Qualifiers: Heart failure type: unspecified Heart failure chronicity: unspecified Qualified Code(s): I50.9 - Heart failure, unspecified Additional A&P Information DVT prophylaxis: Heparin drip. We had a detailed discussion with the daughter and she has been updated of all the developments. We have tried reaching out to multiple facility regarding transfer, [facility] denied accepting the patient. She is on a wait list at [facility]. CODE STATUS: Full code. Attestations Medical Necessity Statement*: She needs to be in hospital for management of ARDS due to Covid pneumonia. Coding Level of Care Code Acute Camera Operator for [facility] Diagnoses Acute respiratory failure with hypoxia J96.01 Diabetes mellitus with insulin therapy E11.9; Z79.4 Acute kidney injury N17.9 Metabolic acidosis with increased anion gap and accumulation of organic acids E87.2 Anemia D64.9 Hypertension, accelerated I10 CHF (congestive heart failure) I50.9 Heart failure type: unspecified Heart failure chronicity: unspecified
[2020-04-21] MEDS: dextrose 5%-sod chloride 0.45% 1,000 ML 50 ML IV (17:32)
[2020-04-21 17:34] LABS: Partial Thromboplastin Time 110.8 SECONDS (23.9-36.7)
--- NOTE | 2020-04-21 18:13 | PC.NURSE ---
PTT this morning on a redraw was 169. Heparin gtt was stopped at [address] Becerra. It was resumed at a rate of 1000 units/hr per Dr Becerra. Then we are to follow the protocol from this point forward. PTT was redrawn at 1610. It was not retrieved by lab until after 1700 despite several phone calls. After the result of 110 the gtt was decreased per protocol by 6 ml/hr or 300 units/hr. Next PTT is ordered for 2300.
--- NOTE | 2020-04-21 18:44 | PC.NURSE ---
Chest Xray late morning showed PICC in the RIJ. Dr Becerra is aware of position as he noticed it with the ultrasound. We discussed pulling it back but Dr Becerra stated he was ok using it where it is at now. PICC was left as is.
[2020-04-21 20:33] LABS: Glucose Point of Care 159 mg/dL (70-110)
[2020-04-21] MEDS: insulin glargine 100 units/1 mL 10 UNIT SUBCUT (20:45)
[2020-04-21 21:37] LABS: Urine Appearance Clear (CLEAR); Urine Color Yellow (Yellow)
[2020-04-21 21:38] LABS: Bilirubin Urine Neg (Negative); Blood Urine Neg (Negative); Glucose Urine UA Norm (Normal); Ketones Urine Negative (Negative); Leukocyte Esterase Urine Negative (Negative); Nitrate Urine Negative (Negative); Protein Urine Neg (Negative); Urobilinogen Urine Norm (Negative)
[2020-04-21 21:46] LABS: Urine Random Sodium 28 mmol/L
[2020-04-21] MEDS: dexamethasone 4 mg/mL INJ 6 MG IVP (22:11)
[2020-04-21 23:36] LABS: Partial Thromboplastin Time 108.5 SECONDS (23.9-36.7)
[2020-04-22] VITALS (20 sets, daily range): BP systolic 0–110; BP diastolic 0–80; PULSE 0–104; RESP 0–16; TEMP 37.7–38.5; O2SAT 0–99
[2020-04-22] MEDS: propofol 1,000 MG/100 ML INJ 16.3 MG IV ×2 (00:03→06:52)
[2020-04-22 00:17] LABS: Creatinine Urine, Random 144 mg/dL (28-217)
[2020-04-22] MEDS: heparin drip 25,000 UNIT/500 ML PREMIX 8 UNIT IV (01:10)
[2020-04-22] MEDS: piperacillin-tazobactam 3.375 GM in sodium chloride 0.9% (plus) 50 ML IV (04:05)
[2020-04-22 04:17] LABS: ABG PCO2 30.8 mmHg (35-45); ABG PH Result 7.29 (7.35-7.45); Arterial Blood Gas Hematocrit 24.6 % (37-47); Base Excess ABG -10.7 mmol/L (-2.0-2.0); Blood Gas Allen Test Pos; Blood Gas Sample Site Radial, right; Blood Gas Sample Type Arterial; Blood Gas Tidal Volume 0.43; Carboxyhemoglobin 0.6 %THgb (0.4-20.1); HCO3 ABG 14.9 mmol/L (22-26); HGB O2 Sat 96.4 % (95-100); Ionized Calcium Level - ABG 1.1 mmol/L (1.1-1.4); Oxygen Device VENT; Potassium Level - ABG 4.9 mmol/L (3.5-5.0)
[2020-04-22 04:52] LABS: Hematocrit 24.6 % (37.0-47.0); Hemoglobin 7.4 g/dL (11.5-15.3); Mean Corpuscular HGB Conc 30.1 g/dL (30.0-36.0); Mean Corpuscular Hemoglobin 26.3 pg (28.0-34.0); Mean Corpuscular Volume 87.5 fL (81-99); Mean Platelet Volume 11.6 fL (7.4-10.4); Platelet Count 519 10^3/cmm (130-400); Red Blood Count 2.81 10^6/uL (4.1-5.3); Red Cell Distribution Width 16.6 % (12.1-15.1); White Blood Count 19.5 10^3/uL (4.0-10.0)
[2020-04-22] MEDS: acetaminophen 325 mg Tablet 650 MG PO (05:03)
[2020-04-22 05:15] LABS: Alanine Aminotransferase 56 U/L (0-33); Albumin Level 2.7 g/dL (3.5-5.2); Alkaline Phosphatase 132 IU/L (35-105); Anion Gap 23.1 (5-19); Aspartate Amino Transferase 100 U/L (0-32); Calcium 7.8 mg/dL (8.5-10.5); Carbon Dioxide 16 mmol/L (22-29); Chloride 111 mmol/L (98-107); Globulin 3.5 g/dL (1.3-4.6); Glucose 189 mg/dL (65-115); Osmolality Calculated 337 mOsm/kg (285-295); Potassium 5.1 mmol/L (3.5-5.1); Sodium 145 mmol/L (136-145); Total Bilirubin 0.4 mg/dL (0.15-1.2); Total Protein 6.2 g/dL (6.6-8.7)
[2020-04-22 05:16] LABS: Magnesium 2.6 mg/dL (1.7-2.3)
[2020-04-22 05:17] LABS: Blood Urea Nitrogen 103 mg/dL (8-23)
[2020-04-22 05:44] LABS: Slide Review Slide Review Perform
[2020-04-22 05:46] LABS: Glucose Point of Care 219 mg/dL (70-110)
--- NOTE | 2020-04-22 05:48 | PC.NURSE ---
Notified Dr Daigle of pt temp of 101.3, low blood pressure and low urine output. Orders received. Will continue to monitor.
[2020-04-22 05:50] LABS: Absolute Eosinophils 0.1 10^3/cmm (0.0-0.7); Absolute Segmented Neutrophil 2.7 10/cmm (1.6-7.1); Band Neutrophils Absolute 10.9 10^3/cmm (0.0-1.2); Eosinophils 1 %; Lymphocytes 10 %; Monocytes Absolute 2.5 10^3/cmm (0.1-0.6); Segmented Neutrophils 14 %; Total Cells Counted 100 (0-100)
[2020-04-22 05:51] LABS: Absolute Neutrophil 13.7 10^3/cmm (1.4-6.5); Platelet Estimate Increased (Normal)
--- NOTE | 2020-04-22 06:18 | XRR_ITS ---
PROCEDURE INFORMATION: Exam: XR Chest, 1 View Exam date and time: 04/22/2020 12:06 PM Age: 74 years old Clinical indication: Condition or disease; Lung condition and disease; Pneumonia; Additional info: Pna TECHNIQUE: Imaging protocol: XR of the chest Views: 1 view. COMPARISON: CR XR chest 1V portable [id number] 04/21/2020 11:54 AM FINDINGS: Tubes, catheters and devices: An endotracheal tube, nasogastric tube and right arm PICC projects in satisfactory position. There is another catheter in the midline projecting on the lower thoracic spine with its tip projecting on the right atrium. Lungs: Bibasilar hazy pulmonary infiltrates are present. These infiltrates have significantly improved since previous study. Pleural space: Unremarkable. No pleural effusion. No pneumothorax. Heart/Mediastinum: Unremarkable. No cardiomegaly. Bones/joints: Unremarkable. XR/XR chest 1V portable [id number] IMPRESSION: Improving bibasilar infiltrates.
[2020-04-22] MEDS: linezolid premix 600 MG/300 ML PREMIX 300 MG IV (07:59)
[2020-04-22] MEDS: azithromycin 500 MG in sodium chloride 0.9% 250 ML 250 MG IV (09:51)
[2020-04-22] MEDS: aspirin 81 mg EC Tablet PO (09:51)
[2020-04-22] MEDS: sertraline 100 mg Tablet PO (09:51)
[2020-04-22] MEDS: dexmedetomidine 400 MCG in sodium chloride 0.9% (100 ml) 100 ML 8.5 MCG IV (09:52)
--- NOTE | 2020-04-22 10:32 | P.PN_ITS ---
Vitals/I&O/Wt Last Vital Signs Temp 101.3 F H 04/22/20 04:00 Pulse 103 H 04/22/20 06:00 Resp 16 04/22/20 08:15 BP 104/54 04/22/20 06:00 Pulse Ox 95 04/22/20 06:00 04/21/20 04/22/20 04/22/20 22:59 06:59 14:59 Intake Total 183.13 / 523.46 374.988 / 898.448 490.165 / 490.165 Output Total 75 / 275 175 / 450 Balance 108.13 / 248.46 199.988 / 448.448 490.165 / 490.165 Weight last 48 hrs Weight 103.691 kg Weight 101.514 kg Weight 102.693 kg Physical Exam Urinary Catheter Management^: Dennison: Cath Placed During This Visit: yes Reason for Continuing Indwelling Catheter: Accurate Measurement of Urinary Output in Critically Ill Patients Urinary Catheter Date of Insertion: 04/15/20 Urinary Catheter Time of Insertion: 18:30 Data : 04/22/20 04:20 04/22/20 04:20 Micro: Microbiology 04/22/20 06:58 Blood Culture - Preliminary Blood SPECIMEN COLLECTED 04/22/20 06:54 Blood Culture - Preliminary Blood SPECIMEN COLLECTED Coding Level of Care Code Acute Quality Control Head for Arina Mina
[2020-04-22] MEDS: sodium chloride 0.9% 1,000 ML 150 ML IV (11:11)
[2020-04-22 12:00] LABS: Glucose Point of Care 234 mg/dL (70-110)
[2020-04-22 12:33] LABS: Blood Gas Allen Test Pos; Blood Gas Sample Site Brachial, left; Blood Gas Sample Type Arterial
--- NOTE | 2020-04-22 12:40 | PM.PN ---
Subjective Subjective: Interval history: Patient just had a cardiac arrest. She received ALS was return of spontaneous rhythm. Difficulty obtaining blood pressure, however, she does have a strong pulse. She remains on low-dose Levophed. She remains intubated and mechanically ventilated. FiO2 40%, PEEP of 12 Medications: Reviewed: Yes Vitals/I&O/Wt Last Vital Signs Temp 101.3 F H 04/22/20 04:00 Pulse 77 04/22/20 11:00 Resp 16 04/22/20 10:35 BP 82/52 04/22/20 11:00 Pulse Ox 99 04/22/20 11:00 04/21/20 04/22/20 04/22/20 22:59 06:59 14:59 Intake Total 183.13 / 523.46 374.988 / 898.448 740.165 / 740.165 Output Total 75 / 275 175 / 450 Balance 108.13 / 248.46 199.988 / 448.448 740.165 / 740.165 Weight last 48 hrs Weight 103.691 kg Weight 101.514 kg Weight 102.693 kg Physical Exam Narrative: EXAM NARRATIVE: Constitutional: Intubated and vented HEENT: Wet mucosa, no jvp, non icteric Lungs: Bilaterally clear without discernible wheeze, rales in all lung zones CVS: S1 S2, no murmurs Abdo: Soft, BS ok Ext 4: Minimal edema, peripheral perfusion with no cyanosis Neurological: Sedated Urinary Catheter Management^: Dennison: Cath Placed During This Visit: yes Reason for Continuing Indwelling Catheter: Accurate Measurement of Urinary Output in Critically Ill Patients Urinary Catheter Date of Insertion: 04/15/20 Urinary Catheter Time of Insertion: 18:30 Data : 04/22/20 04:20 04/22/20 04:20 Micro: Microbiology 04/22/20 06:58 Blood Culture - Preliminary Blood SPECIMEN COLLECTED 04/22/20 06:54 Blood Culture - Preliminary Blood SPECIMEN COLLECTED A&P Additional A&P Information 1. SCOT - Acute kidney injury in these patients may come from both hemodynamic insult i.e. renal hypoperfusion, cytokine mediated tubular injury. - Case discussed with multiple team members. At this time dialysis poses hemodynamic risk, her breathing is stable i.e. she would not benefit from aggressive ultrafiltration. Post code acidosis noted being treated with bicarb. With this in mind, will defer dialysis today, however, likely to be needed in the next 24-48 hours. Avoid usual nephrotoxic agents Strict ins and outs 2. Vent dependent respiratory failure Due to COVID-19 infection Being treated with remdesivir, dexamethasone Antibiotic coverage with Zosyn 3. Hemodynamics low dose pressors 4. Electrolytes Acidosis; will check LA levels Bicarb gtt as mentioned Case discussed with bedside nurse and Dr. Becerra Thank you for consultation, as always is in place to follow these patients with you Attestations Medical Necessity Statement*: eval for SCOT Coding Level of Care Code Acute Clinical Research Manager for Arina Mina
[2020-04-22 12:49] LABS: ABG PCO2 30.5 mmHg (35-45); Arterial Blood Gas Hematocrit 18.1 % (37-47); Base Excess ABG -23.7 mmol/L (-2.0-2.0); Carboxyhemoglobin 0.5 %THgb (0.4-20.1); HCO3 ABG 6.5 mmol/L (22-26); HGB O2 Sat 90.5 % (95-100); Ionized Calcium Level - ABG 1.1 mmol/L (1.1-1.4); Methemoglobin 1.4 % (0.4-1.5); Oxygen Saturation ABG 92.3; PO2 ABG 98.4 mmHg (80.0-100.0); Potassium Level - ABG 7.5 mmol/L (3.5-5.0); Total Hemoglobin 5.9 g/dL (12-16)
[2020-04-22 12:51] LABS: Alveolar-Arterial Oxygen Gradi 19.2 mmHg (5-10); Oxygen Device VENT
[2020-04-22 12:52] LABS: ABG PH Result 6.94 (7.35-7.45)
--- NOTE | 2020-04-22 12:52 | PC.SOCIAL ---
IMM not Updated SS did not update family on IMM, b/c pt went into cardiac arrest & coded. SS will follow up with family at a later date/time.
[2020-04-22] MEDS: sodium bicarbonate 8.4% 1 mEq/mL 50mL Syr 50 MEQ IVP (13:01)
[2020-04-22] MEDS: atropine 0.1 mg/mL Syr 10 mL 1 MG IVP (13:03)
[2020-04-22 13:10] LABS: Magnesium 2.3 mg/dL (1.7-2.3)
[2020-04-22 13:11] LABS: Anion Gap 26.4 (5-19); Blood Urea Nitrogen 80 mg/dL (8-23); Calcium 8.4 mg/dL (8.5-10.5); Chloride 118 mmol/L (98-107); Glucose 136 mg/dL (65-115); Osmolality Calculated 332 mOsm/kg (285-295); Potassium 5.4 mmol/L (3.5-5.1); Sodium 148 mmol/L (136-145)
--- NOTE | 2020-04-22 14:09 | P.DES_ITS ---
Discharge Providers DDS Date of Admission: 04/15/20 14:41 Date Summary Completed: 04/22/20 Attending Provider at Admission: Oswaldo Ribera MD Time of : 13:40 Attending Provider at Discharge: Bruce Becerra MD Primary Care Provider: DO MILA Feldman Diagnoses Hospital Diagnoses (1) Sepsis with multi-organ dysfunction: (2) Acute respiratory failure with hypoxia: (3) Pneumonia due to COVID-19 virus: (4) Acute kidney injury: (5) Metabolic acidosis with increased anion gap and accumulation of organic acids: (6) Diabetes mellitus with insulin therapy: (7) Anemia: (8) Hypertension, accelerated: (9) CHF (congestive heart failure): Qualifiers: Heart failure type: unspecified Heart failure chronicity: unspecified Qualified Code(s): I50.9 - Heart failure, unspecified Reason for Visit Reason for Visit: COVID, RESP DISTRESS Summary Date and Time of : Date of : 04/22/20 Time of : 13:40 Summary: Summary: 74 year old female with PMH,HTN,HFpEF, DM,was admitted with c/o worseing short of breath over last several days as She has been coughing. He was diagnosed with Covid pneumonia on 04/08. Initially kept on BiPAP which she failed to respond and finally she was intubated on 04/18 for worsening respiratory status.Currently intubated and sedated on mechanical vent. She was started on Covid protocol, currently on remdesivir day day 8 as well as on dexamethasone. She was also covered for possible bacterial pneumonia initially on Vanco and Zosyn. Vancomycin was discontinued as MRSA PCR was negative.But later she was started on Zyvox and imipenem as she was spiking temperature and was progressively becoming septic secondary to Covid pneumonia and was going into multiorgan failure. 2D echo done on 1017: Showed no RWMA EF of: 72%, Mildly increased left atrial size. There is no pericardial effusion. There are no intracardiac masses. CT angio was not done: Due to worsening renal function: she was on therapeutic anticoagulation: With heparin drip.She also received 200 cc of convalescent plasma, on 04/21/2020. On 04/22 her respiratory function had improved but she was into resistant severe metabolic acidosis, the plan was to initiate dialysis but given her soft blood pressure as well as not availability of CRRT. She was given bicarb push and the plan was to put on bicarb drip to correct resistant severe metabolic acidosis secondary to acute renal failure. Patient coded on 04/22 at 12:08, the initial rhythm was PEA ,the code lasted till 12:17, she received, 2 epi, 2 amp of bicarb, 1 ampoule of calcium chloride. ROSC was achieved. Second code was called at 13:23 and ended at 13:40, as the family wanted us to call of the code. Epi was given every 3 minutes, no shock was delivered, during the entire code. Time of : 13:40. Multiple attempts were made to transfer the patient to higher level of care as as her kidney function was worsening and she needed CRRT/HD. She was on waitlist at multiple centers. Additional Data: Advance directives?: Yes (Patient states that her daughter has her advanced directive information) Discharge Plan Discharge Patient Disposition: Home Condition: Stable Prescriptions: No Action tramadol 50 mg tablet 50 - 100 mg PO BID PRNRF: 0 atorvastatin 40 mg tablet 40 mg PO DAILY RF: 0 fluticasone propionate [Flonase Allergy Relief] 50 mcg/actuation spray,suspension 2 spray INTRANASAL DAILY RF: 0 alendronate [Fosamax] 70 mg tablet 70 mg PO .once weekly RF: 0 omeprazole 40 mg capsule,delayed release(DR/EC) 40 mg PO DAILY RF: 0 sertraline [Zoloft] 100 mg tablet 100 mg PO BID RF: 0 gabapentin 300 mg capsule 300 mg PO TID RF: 0 insulin lispro [Humalog KwikPen Insulin] 100 unit/mL insulin pen 1 unit SUBCUT TID RF: 0 Levemir FlexTouch U-100 Insuln 100 unit/mL (3 mL) insulin pen 30 unit SUBCUT .AT BEDTIME RF: 0 meclizine 25 mg tablet 25 mg PO BID RF: 0 trazodone 100 mg tablet 150 mg PO DAILY RF: 0 cholecalciferol (vitamin D3) 25 mcg (1,000 unit) capsule 25 mcg PO DAILY RF: 0 bisacodyl [Dulcolax (bisacodyl)] 5 mg tablet,delayed release (DR/EC) 5 mg PO DAILY RF: 0 bisacodyl [Dulcolax (bisacodyl)] 10 mg suppository 10 mg NE DAILY PRNRF: 0 ibuprofen 800 mg tablet 800 mg PO Q8H RF: 0 methenamine hippurate 1 gram tablet 1 gm PO BID RF: 0 polyethylene glycol 3350 [Miralax] 17 gram/dose powder 17 gm PO DAILY RF: 0 nitroglycerin 0.4 mg tablet, sublingual 0.4 mg SUBLINGUAL Q5M PRNRF: 0 acetaminophen [Tylenol] 325 mg capsule 325 mg PO QID PRNRF: 0 ascorbic acid (vitamin C) 1,000 mg tablet 500 mg PO BID RF: 0 aspirin [Adult Low Dose Aspirin] 81 mg tablet,delayed release (DR/EC) 81 mg PO BID RF: 0 amlodipine 10 mg tablet 10 mg PO DAILY 90 Days Qty: 90 RF: 3 furosemide 20 mg tablet 20 mg PO DAILY 90 Days Qty: 90 RF: 3 Referrals: [facility] [Outside] (Return at discharge) DS Attestations Time Spent in /Discharge Care*: greater than 30 min Quality - AMI: AMI present?: No Quality - Stroke: CVA present?: No Symptom Onset Unknown: No Quality - VTE: VTE present?: No Deep Vein Thrombosis/Pulmonary Embolism Present on Admission: No Coding Level of Care Code Acute Four Slide Machine Operator for [facility] Fwd Diagnoses Sepsis with multi-organ dysfunction A41.9; R65.20 Acute respiratory failure with hypoxia J96.01 Pneumonia due to COVID-19 virus U07.1; J12.89 Acute kidney injury N17.9 Metabolic acidosis with increased anion gap and accumulation of organic acids E87.2 Diabetes mellitus with insulin therapy E11.9; Z79.4 Anemia D64.9 Hypertension, accelerated I10 CHF (congestive heart failure) I50.9 Heart failure type: unspecified Heart failure chronicity: unspecified
--- NOTE | 2020-04-22 14:13 | PC.NURSE ---
Patient was noted to be in PEA at approximately 1209. CPR was initiated and Pacer pads were placed. Code was worked per ACLS protocol. H and Ts were considered. Patient was in metabolic acidosis secondary to renal failure. 2 amps of Bicarb and 1 amp of calcium chloride was pushed in addition to EPI every 3 minutes. Good quality compressions were continued throughout the code with the exception of pulse checks. ROSC was obtained at 1217 and pt was somewhat stable. After arrest pt was beginning to taina down again. Per we gave 1 amp of Bicard and 1mg of Atropine. This seemed to help for a while but patient ultimately went into cardiac arrest a second time at 1323. Compressions were started a second time. EPI was given every 3 minutes. High quality compressions were continued throughout code except during pulse checks. Each check revealed Asystole/idioventricular beats. Cardiac arrest was discontinued at 1340.
[2020-04-22 14:30] LABS: Phosphorus 11.3 mg/dL (2.5-4.5)
[2020-04-22 14:31] LABS: Carbon Dioxide 9 mmol/L (22-29)
--- NOTE | 2020-04-22 15:57 | PC.NURSE ---
Fentanyl wasted - 52.2 mL. Witnessed my Chao Guardado RN.
== END 2020-04-22 17:45 | disposition expired | DRG 208 ==
LOC: ER 13:31 → ICU 19:14
PROVIDERS: Internal Medicine; Internal Medicine Nephrology; Internal Medicine Pulmonary Disease; Admitting Provider Internal Medicine; Emergency Provider Family Medicine; Family Provider Family Medicine; PCP Internal Medicine; Visit Provider Internal Medicine
DX: U07.1 COVID-19 (principal); A41.9 Sepsis, unspecified organism; J96.01 Acute respiratory failure with hypoxia; J12.89 Other viral pneumonia; N17.9 Acute kidney failure, unspecified; E87.2 Acidosis; I50.30 Unspecified diastolic (congestive) heart failure; I11.0 Hypertensive heart disease with heart failure; D64.9 Anemia, unspecified; Z79.4 Long term (current) use of insulin; Z79.82 Long term (current) use of aspirin; K21.9 Gastro-esophageal reflux disease without esophagitis; F32.9 Major depressive disorder, single episode, unspecified; M19.90 Unspecified osteoarthritis, unspecified site; E11.40 Type 2 diabetes mellitus with diabetic neuropathy, unspecified; G47.33 Obstructive sleep apnea (adult) (pediatric); E78.5 Hyperlipidemia, unspecified; E66.9 Obesity, unspecified; Z68.34 Body mass index [BMI] 34.0-34.9, adult
CPT/HCPCS: 12345; 36415; 36416; 36430; 36569; 36592; 36600; 51702; 71045; 80048; 80051; 80053; 81003; 82274; 82550; 82575; 82728; 82803; 82810; 82962; 83605; 83615; 83735; 83986; 84100; 84145; 84300; 84443; 84540; 84550; 85007; 85025; 85049; 85378; 85384; 85730; 86140; 86850; 86900; 86920; 86927; 87040; 87493; 87641; 93005; 93308; 94002; 94003; 94640; 94660; 94799; 96372; 96375; 99284; A4570; C1751; C1752; J0456; J0461; J0743; J1100; J1644; J1650; J1815 ×2; J1940; J2020; J2060; J2543; J2704; J3010; J3370; J3475; J3480; J3490; J7030; J7050; J7611; J7799; P9016; P9017; P9047; Q3014